=== PATIENT | female | born 1995 | race African-American/Black ===

== ENCOUNTER 2017-05-13 23:08 | Emergency (ER) | payer OTHER ==
[~2017-05-13] VITALS: Ht 170.2 cm; Wt 77.1 kg
[2017-05-13 23:20] VITALS: BP 109/72
[2017-05-13] MEDS ORDERED: IBUP600T16 PO (23:42)
[2017-05-13] MEDS ORDERED: AZIT250T PO (23:42)
--- NOTE | 2017-05-13 23:42 | PHYS DOC ---
Past History Past Medical History: No Pertinent History Past Surgical History: No Surgical History Alcohol Use: None Drug Use: None Adult General Chief Complaint Chief Complaint: Neck Pain HPI HPI Patient is a 21-year-old female who presents here today complaining of neck pain for 3 days and sore throat 1-2 days. Patient has any fevers shakes chills nausea vomiting diarrhea chest pain shortness of breath cough cold or rhinorrhea. Patient denies any swelling or tenderness in her axilla or groin. Patient denies any abdominal pain. Patient does not recall any mono exposure. Patient has no history of hypertension diabetes liver lung or kidney pals. Patient does not smoke or drink. Patient is allergic to any medications. Patient has no known drug allergies. Patient has no prior surgeries. Patient reports pain to the posterior rectal region 3 days. Patient reports a fairly swelling 1-2 days. Review of systems: Constitutional: Denies fever or chills Eyes: Denies change in visual acuity, redness, or eye pain HENT: Denies nasal congestion All other review systems are negative except as documented in the history of present illness portion. Physical exam: Constitutional: Well developed, well nourished, no acute distress, non-toxic appearance. HENT: Normocephalic, atraumatic, bilateral external ears normal, TMs clear. Patient was tender lymphadenopathy to her submental region as well as her posterior rectal region. Patient has no axillary or groin lymphadenopathy. Spleen is not palpable. Without any erythema. Patient's oropharynx reveals mild bilateral erythema with no exudate. Eyes: PERRLA, EOMI, conjunctiva normal, no discharge. Neck: Normal range of motion, no tenderness, supple, no stridor. No meningeal signs. Cardiovascular:Heart rate regular rhythm, Lungs & Thorax: Bilateral breath sounds clear to auscultation Abdomen: Bowel sounds normal, soft, Skin: Warm, dry, no erythema, no rash. Back: No tenderness, no CVA tenderness. Extremities: No tenderness, no cyanosis, no clubbing, ROM intact, no edema. Neurologic: Alert and oriented X 3, Psychologic: Affect normal, Assessment and plan 21-year-old with bilateral neck pain and posterior regular pain. Patient's exam is essentially unremarkable except for some mild pharyngeal erythema and tender lymphadenopathy. Patient will be given a prescription for Zithromax and ibuprofen assist her with her pain and possible strep throat. Patient does not present with signs or symptoms consistent with meningitis or mono. Review of Systems Review of Systems = Current Medications Current Medications Current Medications Medications (Trade) Dose Ordered Sig/Krystin Start Time Stop Time Status Last Admin Dose Admin Azithromycin (Zithromax) 500 mg 1X ONCE 05/13/17 23:30 05/13/17 23:31 UNV Ibuprofen (Motrin) 600 mg 1X ONCE 05/13/17 23:30 05/13/17 23:31 UNV Allergies Allergies Allergies Coded Allergies Type Severity Reaction Last Updated Verified No Known Drug Allergies 09/27/16 No EKG EKG [] Radiology/Procedures Radiology/Procedures [] Course & Med Decision Making Course & Med Decision Making Pertinent Labs and Imaging studies reviewed. (See chart for details) [] Dragon Disclaimer Dragon Disclaimer This chart was dictated in whole or in part using Voice Recognition software in a busy, high-work load, and often noisy Emergency Department environment. It may contain unintended and wholly unrecognized errors or omissions. Departure Departure: Impression: Primary Impression: Pharyngitis Additional Impression: Lymphadenopathy Disposition: 01 HOME, SELF-CARE Condition: IMPROVED Referrals: AZIZA CALHOUN MD (PCP) Patient Instructions: Sore Throat Scripts Azithromycin (ZITHROMAX) 250 Mg Tablet 250 MG PO DAILY for ANTI-BIOTIC for 4 Days, #4 TAB 0 Refills Prov: DORA TERRY MD 05/13/17 Ibuprofen (IBUPROFEN) 600 Mg Tablet 600 MG PO QID Y for PAIN, #20 Prov: DORA TERRY MD 05/13/17 Problem Qualifiers DORA TERRY MD May 13, 2017 23:42
[2017-05-14] MEDS ORDERED: IBUPROFEN 600 MG TABLET. PO ONE
[2017-05-14] MEDS ORDERED: AZITHROMYCIN 250 MG TABLET. PO ONE
== END 2017-05-13 23:52 | disposition home or self-care (01) ==
LOC: ER 23:08
DX: R59.1 Generalized enlarged lymph nodes (principal)
CPT/HCPCS: 99283; J0456

== ENCOUNTER 2017-09-08 11:26 | Emergency (ER) | payer OTHER ==
[~2017-09-08 11:26] MED LIST: AZIT250T PO; IBUP600T16 PO
[2017-09-08 11:35] VITALS: BP 131/66
[2017-09-08 12:33] LABS: INFLUENZA A PATIENT NEGATIVE (NEGATIVE); INFLUENZA B PATIENT NEGATIVE (NEGATIVE)
[2017-09-08 12:52] LABS: BACTERIA,URINE MOD /HPF (0-FEW); BILIRUBIN,URINE NEG (NEG); CLARITY,URINE TURBID; COLOR,URINE YELLOW; GLUCOSE,URINE NEG (NEG); HYALINE CASTS, URINE OCC /HPF; NITRITE,URINE NEG (NEG); RBC,URINE OCC /HPF (0-2); SQUAMOUS EPITHELIAL CELL,UR MOD /LPF; UROBILINOGEN,URINE 1 mg/dL (0.2 mg/dL); WBC,URINE >40 /HPF (0-4)
[2017-09-08] MEDS ORDERED: PHEN100T82 PO (13:01)
[2017-09-08] MEDS ORDERED: SULF1TAB24 PO (13:01)
--- NOTE | 2017-09-08 13:02 | PHYS DOC ---
General Chief Complaint: SORE THROAT Stated Complaint: SORE THROAT,COUGH,CONGESTION/PAIN ON URINATION Time Seen by MD: 11:42 Source: patient Exam Limitations: no limitations Problems: History of Present Illness Initial Comments Patient is a 21-year-old female who comes to the ED complaining of dysuria and lower abdominal discomfort. Patient also states she's had a mild scratchy throat with clear nasal discharge and a dry cough. She denies any flank pain nausea vomiting or diarrhea no fever chills sweats or myalgias. She denies any symptoms of bowel movements and feels like she may have a urinary tract infection. No pre-arrival treatment she states she's normally healthy immunizations are up-to-date. I urine collected upon arrival as well as swabs for influenza and strep. Timing/Duration: other Severity: moderate Modifying Factors: improves with other Associated Symptoms: other Allergies: Coded Allergies: No Known Drug Allergies (Unverified , 09/27/16) Past Medical History Medical History: no pertinent history Surgical History: noncontributory Social History Smoker: non-smoker Alcohol: none Drugs: none Review of Systems Constitutional: see HPI Respiratory: see HPI Cardiovascular: denies chest pain, denies palpitations Gastrointestinal: see HPI Genitourinary: see HPI Musculoskeletal: denies back pain, denies joint swelling, denies neck pain Psychiatric/Neurological: denies emotional problems, denies headache, denies numbness Physical Exam General Appearance: WD/WN, no apparent distress Ear, Nose, Throat: hearing grossly normal, normal ENT inspection, normal pharynx Neck: non-tender, supple Respiratory: normal breath sounds, no respiratory distress Cardiovascular: normal peripheral pulses, regular rate, rhythm Gastrointestinal: soft (mild suprapubic tenderness without rebound guarding or mass negative Morgan negative McBurney bowel sounds are normal) Back: no CVA tenderness, no vertebral tenderness Extremities: non-tender, normal inspection Neurologic/Psychiatric: no motor/sensory deficits Orders, Labs, Meds Urinalysis grossly positive for infection culture pending Strep and influenza test negative Bactrim DS and Pyridium given in the emergency department. I discussed signs and symptoms to monitor for as well as indications for urgent return to the department. I discussed [id number] prescription medications as well as oral hydration. Patient's questions were answered and she expressed agreement and understanding of treatment plan. Departure Time of Disposition: 13:01 Disposition: 01 HOME, SELF-CARE Diagnosis: UTI Condition: GOOD Patient Instructions: Urinary Tract Infection, [id number]-gf-Gpcy Additional Instructions: Please review the patient education materials given by ED staff. Aggressive hydration with Gatorade or water. [id number]-[id number] Tylenol, ibuprofen, and analgesic throat sprays as needed. Follow-up with your doctor in 10-14 days for recheck of symptoms and urine culture results. Return to ED with new or changing symptoms. ERIC GALLAGHER DO Sep 08, 2017 13:02
[2017-09-09] MEDS ORDERED: viscus Lidocaine TOP (16:43)
== END 2017-09-08 13:10 | disposition home or self-care (01) ==
LOC: ER 11:26
DX: N39.0 Urinary tract infection, site not specified (principal); R09.89 Other specified symptoms and signs involving the circulatory and respiratory systems
CPT/HCPCS: 81001; 87070; 87086; 87186; 87804; 87880; 99284

== ENCOUNTER 2017-09-09 16:02 | Emergency (ER) | payer OTHER ==
[~2017-09-09] VITALS: Ht 170.2 cm; Wt 86.2 kg
[~2017-09-09 16:02] MED LIST changes: +PHEN100T82 PO; +SULF1TAB24 PO
[2017-09-09 16:10] VITALS: BP 112/63
[2017-09-09] MEDS ORDERED: viscus Lidocaine TOP (16:43)
--- NOTE | 2017-09-09 16:43 | PHYS DOC ---
Past History Past Medical History: No Pertinent History Past Surgical History: No Surgical History Alcohol Use: None Drug Use: None Adult General Chief Complaint Chief Complaint: DENTAL PROBLEM HPI HPI 21-year-old female patient was seen in this emergency room yesterday for sore throat and UTI with negative strep and treated with antibiotic and Pyridium. Patient complaining of sore inside of her cheek and lip since yesterday that not getting with [id number] pain medication. Patient denies fever, dental pain, history of the same problem. Review of Systems Review of Systems Constitutional: Denies fever or chills [] Eyes: Denies change in visual acuity, redness, or eye pain [] HENT: reports nasal congestion, sore throat, oral pain [] Respiratory: Denies cough or shortness of breath [] Cardiovascular: No additional information not addressed in HPI [] GI: Denies abdominal pain, nausea, vomiting, bloody stools or diarrhea [] : Denies dysuria or hematuria [] Musculoskeletal: Denies back pain or joint pain [] Integument: Denies rash or skin lesions [] Neurologic: Denies headache, focal weakness or sensory changes [] Endocrine: Denies polyuria or polydipsia [] All other systems were reviewed and found to be within normal limits, except as documented in this note. Allergies Allergies Allergies Coded Allergies Type Severity Reaction Last Updated Verified No Known Drug Allergies 09/27/16 No Physical Exam Physical Exam Constitutional: Well nourished, no acute distress, non-toxic appearance. [] HENT: Normocephalic, atraumatic, bilateral external ears normal, oropharynx moist, no oral exudates, nose normal. Small area of ulcer in oral mucosal of lower lip and left side of cheek. [] Eyes: PERRLA, EOMI, conjunctiva normal, no discharge. [] Neck: Normal range of motion, no tenderness, supple, no stridor. [] Cardiovascular:Heart rate regular rhythm, no murmur [] Lungs & Thorax: Bilateral breath sounds clear to auscultation [ Neurologic: Alert and oriented X 3, normal motor function, normal sensory function, no focal deficits noted. [] Current Patient Data Vital Signs Vital Signs Date Time Temp Pulse Resp B/P (MAP) Pulse Ox O2 Delivery O2 Flow Rate FiO2 09/09/17 16:10 97.7 92 16 100 Room Air EKG EKG [] Radiology/Procedures Radiology/Procedures [] Course & Med Decision Making Course & Med Decision Making Evaluation of patient in ER showed 21-year-old female patient presented to emergency room for the second time in the last 2 days with complaining of sore throat and sore in her mouth. Patient had canker sores and instructed to continue home antibiotic and prescription for viscous lidocaine was given. Dragon Disclaimer Dragon Disclaimer This electronic medical record was generated, in whole or in part, using a voice recognition dictation system. Departure Departure: Impression: Primary Impression: Canker sores oral Disposition: HOME, SELF-CARE (At 1640) Condition: STABLE Referrals: AZIZA CALHOUN MD (PCP) Patient Instructions: Canker Sores Additional Instructions: Continue her current home medication Follow-up with your primary care physician in 3-5 days Return to ER if not getting better Scripts [viscus Lidocaine] No Conflict Check 1 RASHID TOP QID Y for PAIN for 5 Days, #120 ML Prov: RORY JACOBS MD 09/09/17 RORY JACOBS MD Sep 09, 2017 16:43
== END 2017-09-09 17:02 | disposition home or self-care (01) ==
LOC: ER 16:02
DX: K12.0 Recurrent oral aphthae (principal)
CPT/HCPCS: 99283

== ENCOUNTER 2017-09-12 21:28 | Emergency (ER) | payer OTHER ==
[~2017-09-12] VITALS: Ht 170.2 cm; Wt 86.2 kg
[~2017-09-12 21:28] MED LIST changes: +viscus Lidocaine TOP
[2017-09-12 22:15] VITALS: BP 135/79
--- NOTE | 2017-09-12 22:34 | PHYS DOC ---
General Chief Complaint: URINARY FREQUENCY Stated Complaint: PROBLEM URINATING Time Seen by MD: 21:35 Source: patient Exam Limitations: no limitations Problems: History of Present Illness Initial Comments Patient is a 21-year-old female complaining of urinary symptoms. Patient was seen in this emergency department 4 days ago by me diagnosed with urinary tract infection and prescribed Bactrim DS and Pyridium. I have attached copy of the urine culture report below she grew out Proteus mirabilis susceptible to Bactrim DS. RUN DATE: 09/10/17 [facility] *LIVE* PAGE 1 RUN TIME: 1314 Specimen Inquiry PATIENT: CLIFF VERA ACCT: [id number] LOC: ALE U : [id number] AGE/SX: 21/F ROOM: REG : 09/08/[address]: ERIC GALLAGHER DO : 1995 BED: DIS : STATUS: KELLY AGUILERA TLOC: SPEC #: [id number] ELKIN: 09/08/17-1253 STATUS: DAYNE RIOJAS #: [id number] RECD: 09/08/[address]: ERIC GALLAGHER DO SOURCE: VOID ENTR: 09/08/[address] [facility] [address]: AZIZA CALHOUN MD [facility]: ORDERED: URINE CULTURE Procedure Result URINE CULTURE Final Final report URINE CULT RES 1 Final Proteus mirabilis Greater than 100,000 colony forming units per mL Cefazolin <=4 ug/mL Cefazolin with an LUNA <=16 predicts susceptibility to the oral agents cefaclor, cefdinir, cefpodoxime, cefprozil, cefuroxime, cephalexin, and loracarbef when used for therapy of uncomplicated urinary tract infections due to E. coli, Klebsiella pneumoniae, and Proteus mirabilis. ANTIMICROBIAL SUSCEPTIBILITY Final Comment S = Susceptible; I = Intermediate; R = Resistant P = Positive; N = Negative MICS are expressed in micrograms per mL Antibiotic RSLT#1 RSLT#2 RSLT#3 RSLT#4 Amoxicillin/Clavulanic Acid S Ampicillin S Cefepime S Ceftriaxone S Cefuroxime S Cephalothin S Ciprofloxacin S Ertapenem S Gentamicin S Levofloxacin S Nitrofurantoin R Piperacillin S Tetracycline R Tobramycin S Trimethoprim/Sulfa S Performed at: [address] [id number] Copyright Manager: Michelle Zarate MD, Phone: [phone] END OF REPORT Patient states that she developed a yeast infection and was seen at [facility] and prescribed Diflucan. She states she also used some over-the- counter Monistat. She says that yesterday she felt some burning itching and tingling around her external genitalia however had no skin changes. She then developed some clear vesicles was have not popped and she has exquisitely tender ulcerations she states her preventing her from urinate or walk properly. She asked as if she is in severe distress she claims one lifetime sexual partner unprotected and states that he is waiting in the waiting room. She is requesting a pelvic exam to evaluate her skin lesions. She denies history of STI she states that yesterday when she was feeling the itching and burning she also felt as if she had some chills and sweats and body ache those symptoms have resolved. She continues to take the Bactrim DS as prescribed. Timing/Duration: other Modifying Factors: worse with movement, improves with rest Associated Symptoms: other Allergies: Coded Allergies: No Known Drug Allergies (Unverified , 09/27/16) Past Medical History Medical History: no pertinent history Surgical History: noncontributory Social History Smoker: non-smoker Alcohol: none Drugs: none Review of Systems Constitutional: see HPI Respiratory: denies cough, denies shortness of breath Cardiovascular: denies chest pain, denies palpitations Gastrointestinal: denies abdominal pain, denies nausea, denies vomiting Genitourinary: see HPI Musculoskeletal: denies back pain, denies joint swelling, denies neck pain Skin: see HPI Psychiatric/Neurological: denies headache, denies numbness, denies paresthesia Physical Exam General Appearance: WD/WN, no apparent distress Neck: non-tender, supple Respiratory: normal breath sounds, no respiratory distress Gastrointestinal: non tender, soft Rectal: other (genitourinary: Exam completed with RN present. Excessive topical Desitin medication wiped away by RN patient accepted it is exquisitely painful. Once the topical medication has been removed exam is very difficult as the patient still complains of exquisite tenderness. 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 Physical exam findings in combination with the development of symptoms before actual skin lesions compatible treatment.) Back: no CVA tenderness, no vertebral tenderness Extremities: non-tender, normal inspection Neurologic/Psychiatric: target setter II-XII nml as tested, no motor/sensory deficits, alert, normal mood/affect, oriented x 3 Orders, Labs, Meds I discussed the possibility that HSV too could be the cause of her new symptoms. I discussed the departure instructions [id number] and provided them in written format. I discussed the need to follow-up with a auto air conditioning installer for confirmation of today's diagnosis or the possibility that an alternative process could be present. Nupercainal applied with good analgesic relief and Valtrex 1000 mg given by mouth. I discussed no sexual contact until cleared by auto air conditioning installer, signs and symptoms to monitor as well as indications for urgent return to the department. I discussed Diflucan for yeast infection and the patient's questions were answered to her satisfaction. She understands that she must follow-up with a auto air conditioning installer and expressed agreement and understanding with the treatment plan. Departure Time of Disposition: 00:29 Disposition: 01 HOME, SELF-CARE Diagnosis: Genital lesions (HSV2), candidiasis, UTI Condition: GOOD Patient Instructions: Candidal Vulvovaginitis, [id number], Genital Herpes Additional Instructions: Please review the patient education materials given by ED staff. Pelvic rest, no genital sexual activity until cleared by your doctor. Continue Bactrim DS. Prescription: Nupercainal, Valtrex, Diflucan Follow-up with your doctor in 10 days for recheck and further evaluation and treatment as necessary. Return to the ED with new or changing symptoms. ERIC GALLAGHER DO Sep 12, 2017 22:34
[2017-09-12] MEDS: DIBUCAINE RECTAL OINTMENT 28GM TUBE. RC ONE (23:40)
[2017-09-13] MEDS ORDERED: [UNRECOGNIZED DRUG - CODE] TP (00:28)
[2017-09-13] MEDS ORDERED: VALA10005 PO (00:28)
[2017-09-13] MEDS ORDERED: FLUC150T PO (00:28)
[2017-09-13] MEDS: valACYclovir 500 MG TABLET. PO ONE (00:42)
== END 2017-09-13 00:45 | disposition home or self-care (01) ==
LOC: ER 21:28
DX: N39.0 Urinary tract infection, site not specified (principal); B37.9 Candidiasis, unspecified; N94.89 Other specified conditions associated with female genital organs and menstrual cycle
CPT/HCPCS: 99283

== ENCOUNTER 2017-09-13 03:12 | Emergency (ER) | payer OTHER ==
[~2017-09-13] VITALS: Ht 170.2 cm; Wt 86.2 kg
[~2017-09-13 03:12] MED LIST changes: +FLUC150T PO; +VALA10005 PO; +[UNRECOGNIZED DRUG - CODE] TP
[2017-09-13 03:40] VITALS: BP 98/61
--- NOTE | 2017-09-13 03:43 | PHYS DOC ---
General Chief Complaint: DRUG ABUSE Stated Complaint: DIZZINESS Time Seen by MD: 03:39 Source: patient, EMS Exam Limitations: intoxication Problems: History of Present Illness Initial Comments Patient is a 21-year-old female well known to the department as she's been seen here several times in the past few days. Patient was discharged home just a few hours ago with apparent new onset general herpes infection. Patient brought to the ED by EMS after reporting that she had used marijuana for the first time tonight and now was feeling like the room was spinning. Her vital signs are stable and she was brought to the ED for medical screening exam. In the emergency department the patient falls asleep each time she is left alone in the exam room. When she is awake and she is somewhat paranoid and wants to know how long she will be high, denies any other illicit substance abuse. She states that she took 8 hit from a marijuana joint and has never used this substance in the past. She says that having the room spinning and being disoriented scared her. On arrival she was somewhat paranoid however throughout the ED course she has become very sleepy the entire time she's been on telemetry protecting her airway with normal vital signs. Her aunt is in the waiting room with a small child and is wanting to take her home, she is willing to keep an eye on her throughout the night to make sure she doesn't get into any further trouble. She agrees to bring her back to the emergency department with any new or changing symptoms and after medical screening exam in the emergency department I do not feel any further workup is necessary and the patient is stable for discharge home with a responsible adult. Timing/Duration: other Severity: severe Modifying Factors: improves with other Associated Symptoms: other Allergies: Coded Allergies: No Known Drug Allergies (Unverified , 09/27/16) Past Medical History Medical History: no pertinent history Surgical History: noncontributory Social History Smoker: non-smoker Alcohol: none Drugs: marijuana Review of Systems All Other Systems: Reviewed and Negative (patient is intoxicated accurate review of systems is unobtainable see history of present illness) Physical Exam General Appearance: WD/WN, mild distress (paranoid when awake however also sleep easily) Eyes: bilateral eye PERRL, bilateral eye EOMI, bilateral eye other ( conjunctivae injected bilaterally) Ear, Nose, Throat: hearing grossly normal, normal ENT inspection, normal pharynx Neck: non-tender, supple Respiratory: normal breath sounds, no respiratory distress Cardiovascular: normal peripheral pulses, regular rate, rhythm Back: no CVA tenderness, no vertebral tenderness Extremities: non-tender, normal inspection Neurologic/Psychiatric: supervisor plastering II-XII nml as tested, no motor/sensory deficits, alert, normal mood/affect, oriented x 3 Skin: normal color, warm/dry Orders, Labs, Meds Patient was discharged home with her aunt who agrees to take care of her tonight. She will basically take patient home put her to bed and make sure she doesn't get up or to cause any trouble. Departure Time of Disposition: 03:40 Disposition: 01 HOME, SELF-CARE Diagnosis: marijuana intoxication, substance abuse, screening Condition: STABLE Patient Instructions: Marijuana Abuse-Brief, Medical Screening Exam Additional Instructions: After ED evaluation findings and given Jayne history of first time marijuana abuse medical screening exam tonight reveals no emergent condition. No driving or operating machinery while under the influence of illicit or prescription medications. Recommend discontinue substance abuse, seeking medical assistance if necessary. Discharge home with responsible adult relative who can keep an eye on Jayne throughout the night. Return to the ED and follow-up with your doctor as needed. ERIC GALLAGHER DO Sep 13, 2017 03:43
== END 2017-09-13 03:45 | disposition home or self-care (01) ==
LOC: ER 03:12
DX: F12.129 Cannabis abuse with intoxication, unspecified (principal)
CPT/HCPCS: 99283

== ENCOUNTER 2017-11-20 02:36 | Emergency (ER) | payer OTHER ==
[~2017-11-20] VITALS: Ht 170.2 cm; Wt 86.2 kg
[2017-11-20 02:42] VITALS: BP 121/73
--- NOTE | 2017-11-20 02:57 | ED.ADGEN ---
Past History Past Medical History: No Pertinent History, Other Past Surgical History: No Surgical History Alcohol Use: None Drug Use: Marijuana Adult General Chief Complaint Chief Complaint " I first had this back in Aug. .. after I smoked some marijuana.. but I keep having these episodes of numbness in my hands.. and now it is my feet... It can go all the way up my arms.. it got really bad tonight.. I tried to sleep it off... but could nt.... " HPI HPI Patient is a 22 year old female who presents with periodic episodes of hand numbness. Symptoms started after smoking some Marijuana on 09/13/2017. Pt. numbness is described as glove distribution. Pt. now complaints of stocking numbness distribution with the glove distribution. Nothing seems to make numbness better. No hx trauma, travel or specific ill contacts. Pt. has had problems with UTI complaints 09/08, 09/09, and 09/12 of this year- seen in ED. Pt. seen on 09/13 for numbness in hands. Symptoms usually happen when she is at home. Symptoms present up on awaking tonight. Pt. has not followed with Dr. Ana Rosa Wahl at [facility]. Significant other states she does snore at night, to point he can not sleep. He does not live with her in her apt. Review of Systems Review of Systems Constitutional: Denies fever or chills [] Eyes: Denies change in visual acuity, redness, or eye pain [] HENT: Denies nasal congestion or sore throat [] Respiratory: Denies cough or shortness of breath [] Cardiovascular: No additional information not addressed in HPI [] GI: Denies abdominal pain, nausea, vomiting, bloody stools or diarrhea [] : Denies dysuria or hematuria [] Musculoskeletal: Denies back pain or joint pain . Complaints of generalized weakness. Integument: Denies rash or skin lesions [] Neurologic: Denies headache, focal weakness .]Complaints of glove and stocking numbness. Endocrine: Denies polyuria or polydipsia [] All other systems were reviewed and found to be within normal limits, except as documented in this note. Family History Family History Non-contributory Current Medications Current Medications Current Medications Medications (Trade) Dose Ordered Sig/Krystin Start Time Stop Time Status Last Admin Dose Admin Lactated Ringer's 1,000 ml @ 1,000 mls/hr Q1H 11/20/17 03:30 11/20/17 04:30 DC 11/20/17 03:55 1,000 MLS/HR Allergies Allergies Allergies Coded Allergies Type Severity Reaction Last Updated Verified No Known Drug Allergies 09/27/16 No Physical Exam Physical Exam Constitutional: Well developed, well nourished, no acute distress, non-toxic appearance. [] HENT: Normocephalic, atraumatic, bilateral external ears normal, oropharynx moist, no oral exudates, nose normal. [] Eyes: PERRLA, EOMI, conjunctiva normal, no discharge. [] Fundus benign. Neck: Normal range of motion, no tenderness, supple, no stridor. [] No carotid bruits appreciated. Palpable thyroid Cardiovascular:Heart rate regular rhythm, no murmur [] Lungs & Thorax: Bilateral breath sounds equal at apexes with a few scattered wheezes auscultation [] Abdomen: Bowel sounds normal, soft, no tenderness, no masses, no pulsatile masses. Obese Skin: Warm, dry, no erythema, no rash. [] Back: No tenderness, no CVA tenderness. [] Extremities: No tenderness, no cyanosis, no clubbing, ROM intact, no edema. [] Neurologic: Alert and oriented X 3, normal motor function, normal sensory function, no focal deficits noted. []DTRs +2 patella and brachial. No drift. Podiatrist Orthopedic equal. Fingers nose good with eyes closed. Mild Romberg. Distal vibratory 128 intact in hands and feet. Air-conduction more than bone conduction with 128 vib. Rt. hand dominate. Psychologic: Affect anxious, judgement normal, mood normal. [] Current Patient Data Vital Signs Vital Signs Date Time Temp Pulse Resp B/P (MAP) Pulse Ox O2 Delivery O2 Flow Rate FiO2 11/20/17 02:42 97.3 89 18 99 Lab Results Laboratory Tests Test 11/20/17 02:07 11/20/17 03:00 11/20/17 03:20 11/20/17 03:21 POC Urine HCG, Qualitative hcg negative (Negative) Urine Collection Type Unknown Urine Color Yellow Urine Clarity Clear Urine pH 6.5 Urine Specific [place] 1.020 Urine Protein Neg (NEG-TRACE) Urine Glucose (UA) Neg mg/dL (NEG) Urine Ketones (Stick) Trace mg/dL (NEG) Urine Blood Small (NEG) Urine Nitrite Neg (NEG) Urine Bilirubin Neg (NEG) Urine Urobilinogen Dipstick 1 mg/dL (0.2 mg/dL) Urine Leukocyte Esterase Neg (NEG) Urine RBC Occ /HPF (0-2) Urine WBC 1-4 /HPF (0-4) Urine Squamous Epithelial Cells Mod /LPF Urine Bacteria Few /HPF (0-FEW) Urine Opiates Screen Neg (NEG) Urine Methadone Screen Neg (NEG) Urine Barbiturates Neg (NEG) Urine Phencyclidine Screen Neg (NEG) Urine Amphetamine/Methamphetamine Neg (NEG) Urine Benzodiazepines Screen Neg (NEG) Urine Cocaine Screen Neg (NEG) Urine Cannabinoids Screen Neg (NEG) Urine Ethyl Alcohol Neg (NEG) White Blood Count 8.6 x10^3/uL (4.0-11.0) Red Blood Count 4.58 x10^6/uL (3.50-5.40) Hemoglobin 11.5 g/dL (12.0-15.5) L Hematocrit 35.8 % (36.0-47.0) L Mean Corpuscular Volume 78 fL (79-100) L Mean Corpuscular Hemoglobin 25 pg (25-35) Mean Corpuscular Hemoglobin Concent 32 g/dL (31-37) Red Cell Distribution Width 18.5 % (11.5-14.5) H Platelet Count 321 x10^3/uL (140-400) Neutrophils (%) (Auto) 45 % (31-73) Lymphocytes (%) (Auto) 45 % (24-48) Monocytes (%) (Auto) 7 % (0-9) Eosinophils (%) (Auto) 2 % (0-3) Basophils (%) (Auto) 1 % (0-3) Neutrophils # (Auto) 3.9 x10^3uL (1.8-7.7) Lymphocytes # (Auto) 3.9 x10^3/uL (1.0-4.8) Monocytes # (Auto) 0.6 x10^3/uL (0.0-1.1) Eosinophils # (Auto) 0.1 x10^3/uL (0.0-0.7) Basophils # (Auto) 0.1 x10^3/uL (0.0-0.2) Erythrocyte Sedimentation Rate 12 (0-25) Sodium Level 140 mmol/L (136-145) Potassium Level 4.0 mmol/L (3.5-5.1) Chloride Level 105 mmol/L (98-107) Carbon Dioxide Level 25 mmol/L (21-32) Anion Gap 10 (6-14) Blood Urea Nitrogen 15 mg/dL (7-20) Creatinine 0.8 mg/dL (0.6-1.0) Estimated GFR (Cockcroft-Gault) 110.7 Glucose Level 93 mg/dL (70-99) Calcium Level 8.7 mg/dL (8.5-10.1) Magnesium Level 1.8 mg/dL (1.8-2.4) Total Bilirubin 0.2 mg/dL (0.2-1.0) Direct Bilirubin < 0.1 mg/dL (0.0-0.2) Aspartate Amino Transferase (AST) 17 U/L (15-37) Alanine Aminotransferase (ALT) 23 U/L (14-59) Alkaline Phosphatase 113 U/L (46-116) Creatine Kinase 160 U/L (26-192) Creatine Kinase MB (Mass) < 0.5 ng/mL (0.0-3.6) Creatine Kinase MB Relative Index 0.3 % (0-4) Troponin I Quantitative < 0.017 ng/mL (0-0.055) Total Protein 7.1 g/dL (6.4-8.2) Albumin 3.4 g/dL (3.4-5.0) Blood pH 7.38 (7.35-7.45) Blood Gas PCO2 36 mmHg (35-45) Blood Gas PO2 93 mmHg (80-100) Blood Gas HCO3 22 mmol/L (22-26) Arterial Bld O2 Saturation (Calc) 97 % (92-99) FiO2 21 % Test 11/20/17 03:40 Carbon Monoxide, Quantitative 1.2 EKG EKG [] Radiology/Procedures Radiology/Procedures CT shows no shift, mass, edema, fx or shift, hemorrhage. Cervical shows no obvious fx., stenosis foraminal or central. See formal report when available. [] Course & Med Decision Making Course & Med Decision Making Pertinent Labs and Imaging studies reviewed. (See chart for details) [] Final Impression Final Impression 1. Glove and Stocking Numbness Complaints- Interment[] 2. Anemia Problems: Dragon Disclaimer Dragon Disclaimer This electronic medical record was generated, in whole or in part, using a voice recognition dictation system. DAVID PANTOJA MD Nov 20, 2017 02:57
[2017-11-20] MEDS ORDERED: IV RINGERS SOLUTION,LACTATED 1,000 ML IV SCH (03:30)
[2017-11-20 03:38] LABS: BASO # 0.1 x10^3/uL (0.0-0.2); BASO % 1 % (0-3); EOS # 0.1 x10^3/uL (0.0-0.7); EOS % 2 % (0-3); HEMATOCRIT 35.8 % (36.0-47.0); HEMOGLOBIN 11.5 g/dL (12.0-15.5); LYMPH # 3.9 x10^3/uL (1.0-4.8); LYMPH % 45 % (24-48); MEAN CORPUSCULAR HEMOGLOBIN 25 pg (25-35); MEAN CORPUSCULAR HGB CONC 32 g/dL (31-37); MEAN CORPUSCULAR VOLUME 78 fL (79-100); MONO # 0.6 x10^3/uL (0.0-1.1); MONO % 7 % (0-9); NEUT # 3.9 x10^3uL (1.8-7.7); NEUT % 45 % (31-73); PLATELET COUNT 321 x10^3/uL (140-400); RED BLOOD COUNT 4.58 x10^6/uL (3.50-5.40); RED CELL DISTRIBUTION WIDTH 18.5 % (11.5-14.5); WHITE BLOOD COUNT 8.6 x10^3/uL (4.0-11.0)
[2017-11-20 03:44] LABS: BILIRUBIN,URINE NEG (NEG); CLARITY,URINE CLEAR; COLOR,URINE YELLOW; GLUCOSE,URINE NEG (NEG)
[2017-11-20 03:45] LABS: BACTERIA,URINE FEW /HPF (0-FEW); NITRITE,URINE NEG (NEG); RBC,URINE OCC /HPF (0-2); SQUAMOUS EPITHELIAL CELL,UR MOD /LPF; UROBILINOGEN,URINE 1 mg/dL (0.2 mg/dL)
[2017-11-20 03:46] LABS: AMPHETAMINE/METHAMPHETAMINE NEG (NEG); BARBITURATES NEG (NEG); BENZODIAZEPINES NEG (NEG); CANNABINOIDS NEG (NEG); COCAINE NEG (NEG); METHADONE NEG (NEG); OPIATES NEG (NEG); PHENCYCLIDINE NEG (NEG)
[2017-11-20 03:47] LABS: BGAS PH 7.38 (7.35-7.45)
--- NOTE | 2017-11-20 03:56 | RAD ---
CT brain without contrast, CT cervical spine without contrast HISTORY: Cervical neuropathy numbness and tingling bilateral upper extremities CT brain CT scan of brain was done without contrast. There is no intracranial hemorrhage or subdural hematoma. Ventricles are normal in size. There is no mass or shift of the midline. There are no abnormal areas of increased or decreased attenuation. Sinuses are clear. IMPRESSION: 1. No intracranial hemorrhage or acute finding noted. End impression CT cervical spine Axial CT images were obtained to the cervical spine. Sagittal and coronal reconstructed images were reviewed. There is no focal disc protrusion. Thyroid is homogeneous. The spine is in normal alignment. Disc spaces are normal in height. A fracture is not identified. IMPRESSION: 1. No fracture or acute osseous abnormality noted in the cervical spine. 2. No focal disc protrusion or spinal stenosis noted. PQRS Compliance Statement: One or more of the following individualized dose reduction techniques were utilized for this examination: 1. Automated exposure control 2. Adjustment of the mA and/or kV according to patient size 3. Use of iterative reconstruction technique Electronically signed by: Dustin Cordero MD (11/20/2017 3:53 AM) [id number]
[2017-11-20 04:06] LABS: ALBUMIN 3.4 g/dL (3.4-5.0); ALK PHOS 113 U/L (46-116); ALT (SGPT) 23 U/L (14-59); ANION GAP 10 (6-14); AST (SGOT) 17 U/L (15-37); BLOOD UREA NITROGEN 15 mg/dL (7-20); CALCIUM 8.7 mg/dL (8.5-10.1); CARBON DIOXIDE 25 mmol/L (21-32); CHLORIDE 105 mmol/L (98-107); CREATININE 0.8 mg/dL (0.6-1.0); GFR 110.7; GLUCOSE 93 mg/dL (70-99); MAGNESIUM 1.8 mg/dL (1.8-2.4); SODIUM 140 mmol/L (136-145); TOTAL BILIRUBIN 0.2 mg/dL (0.2-1.0); TOTAL PROTEIN 7.1 g/dL (6.4-8.2)
[2017-11-20 04:07] LABS: DIRECT BILIRUBIN < 0.1 mg/dL (0.0-0.2)
[2017-11-20 04:43] LABS: SEDIMENTATION RATE 12 (0-25)
== END 2017-11-20 05:00 | disposition home or self-care (01) ==
LOC: ER 02:36
DX: R20.0 Anesthesia of skin (principal); D64.9 Anemia, unspecified; F15.10 Other stimulant abuse, uncomplicated
CPT/HCPCS: 36415; 36600; 70450; 72125; 80048; 80076; 80307; 81001; 81025; 82375; 82553; 82803; 83735; 84443; 84484; 85025; 85045; 85651; 96360; 99285; J7120; G0479

== ENCOUNTER 2018-02-23 21:52 | Emergency (ER) | payer OTHER ==
[~2018-02-23] VITALS: Ht 170.2 cm; Wt 86.2 kg
[2018-02-23 21:55] VITALS: BP 128/73
--- NOTE | 2018-02-23 21:55 | ED.ADGEN ---
Past History Past Medical History: No Pertinent History, Other Past Surgical History: No Surgical History Alcohol Use: None Drug Use: Marijuana Adult General Chief Complaint Chief Complaint " I ve been sick off and on for two weeks... usually here in my stomach... some nausea and vomiting.. it seems to happen after eating greasy foods... I guess I could be .. 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 she is a lady that can't walk..." HPI HPI Patient is a 22 year old female who presents with above hx pain with nausea and vomiting. Nausea and vomiting seems be related to intake of fatty food. Last episode was after eating spaghetti with meat sauce.. Pt.denies travel, ill contacts, or work with ill patients. Pt. does not know if other people in her family have had gall bladder problems. Pt. denies any changes in stools Pt. normally healthy. Pt. normally follow s with in [facility]. Review of Systems Review of Systems Constitutional: Denies fever or chills [] Eyes: Denies change in visual acuity, redness, or eye pain [] HENT: Denies nasal congestion or sore throat [] Respiratory: Denies cough or shortness of breath [] Cardiovascular: No additional information not addressed in HPI [] GI: Complaints of epigastric and right upper quadrant abdominal pain, nausea, vomiting,. Denies bloody stools or diarrhea [] : Denies dysuria or hematuria [] Musculoskeletal: Denies back pain or joint pain [] Integument: Denies rash or skin lesions [] Neurologic: Denies headache, focal weakness or sensory changes [] Endocrine: Denies polyuria or polydipsia [] All other systems were reviewed and found to be within normal limits, except as documented in this note. Family History Family History Noncontributory Current Medications Current Medications Current Medications Medications (Trade) Dose Ordered Sig/Krystin Start Time Stop Time Status Last Admin Dose Admin Famotidine (Pepcid) 20 mg 1X ONCE 02/23/18 23:00 02/23/18 23:01 DC 02/23/18 22:58 20 MG Info (Do NOT chart on this entry -- for MONITORING) 1 each PRN DAILY PRN 02/23/18 23:45 02/24/18 01:50 DC Iohexol (Omnipaque 240 Mg/ml) 50 ml 1X ONCE 02/23/18 23:45 02/23/18 23:46 DC 02/24/18 00:31 50 ML Iohexol (Omnipaque 300 Mg/ml) 75 ml 1X ONCE 02/23/18 23:45 02/23/18 23:46 DC 02/24/18 00:30 75 ML Lactated Ringer's 1,000 ml @ 1,000 mls/hr Q1H 02/23/18 23:00 02/23/18 23:59 DC 02/23/18 22:54 1,000 MLS/HR Magnesium Hydroxide (Milk Of Magnesia) 2,400 mg 1X ONCE 02/23/18 23:00 02/23/18 23:01 DC 02/23/18 22:59 2,400 MG Ondansetron HCl (Zofran Odt) 8 mg 1X ONCE 02/23/18 23:00 02/23/18 23:01 DC 02/23/18 22:59 8 MG Allergies Allergies Allergies Coded Allergies Type Severity Reaction Last Updated Verified No Known Drug Allergies 02/23/18 No Physical Exam Physical Exam Constitutional: Well developed, well nourished, moderate acute distress, non- toxic appearance. [] HENT: Normocephalic, atraumatic, bilateral external ears normal, oropharynx moist, no oral exudates, nose normal. [] Eyes: PERRLA, EOMI, conjunctiva normal, no discharge. [] Neck: Normal range of motion, no tenderness, supple, no stridor. [] Cardiovascular:Heart rate regular rhythm, no murmur [] Lungs & Thorax: Bilateral breath sounds clear to auscultation [] Abdomen: Bowel sounds normal, soft, epigastric and right upper quadrant tenderness, no masses, no pulsatile masses. Rebound to epigastric and right upper quadrant. Declines rectal exam or pelvic exam this time. Distended. Skin: Warm, dry, no erythema, no rash. [] Back: No tenderness, no CVA tenderness. [] Extremities: No tenderness, no cyanosis, no clubbing, ROM intact, no edema. [No psoas or heeltap. Neurologic: Alert and oriented X 3, normal motor function, normal sensory function, no focal deficits noted. [] Psychologic: Affect anxious, judgement normal, mood normal. [] Current Patient Data Vital Signs Vital Signs Date Time Temp Pulse Resp B/P (MAP) Pulse Ox O2 Delivery O2 Flow Rate FiO2 02/23/18 21:55 97.9 16 99 Room Air Lab Results Laboratory Tests Test 02/23/18 21:18 02/23/18 21:58 02/23/18 22:49 POC Urine HCG, Qualitative hcg negative (Negative) Urine Collection Type Unknown Urine Color Yellow Urine Clarity Clear Urine pH 8.5 Urine Specific [place] 1.015 Urine Protein Neg (NEG-TRACE) Urine Glucose (UA) Neg mg/dL (NEG) Urine Ketones (Stick) Neg mg/dL (NEG) Urine Blood Neg (NEG) Urine Nitrite Neg (NEG) Urine Bilirubin Neg (NEG) Urine Urobilinogen Dipstick 0.2 mg/dL (0.2 mg/dL) Urine Leukocyte Esterase Neg (NEG) Urine RBC 0 /HPF (0-2) Urine WBC 1-4 /HPF (0-4) Urine Squamous Epithelial Cells Few /LPF Urine Bacteria Few /HPF (0-FEW) White Blood Count 11.1 x10^3/uL (4.0-11.0) H Red Blood Count 4.44 x10^6/uL (3.50-5.40) Hemoglobin 11.4 g/dL (12.0-15.5) L Hematocrit 35.5 % (36.0-47.0) L Mean Corpuscular Volume 80 fL (79-100) Mean Corpuscular Hemoglobin 26 pg (25-35) Mean Corpuscular Hemoglobin Concent 32 g/dL (31-37) Red Cell Distribution Width 16.2 % (11.5-14.5) H Platelet Count 374 x10^3/uL (140-400) Neutrophils (%) (Auto) 65 % (31-73) Lymphocytes (%) (Auto) 28 % (24-48) Monocytes (%) (Auto) 6 % (0-9) Eosinophils (%) (Auto) 1 % (0-3) Basophils (%) (Auto) 1 % (0-3) Neutrophils # (Auto) 7.2 x10^3uL (1.8-7.7) Lymphocytes # (Auto) 3.1 x10^3/uL (1.0-4.8) Monocytes # (Auto) 0.6 x10^3/uL (0.0-1.1) Eosinophils # (Auto) 0.1 x10^3/uL (0.0-0.7) Basophils # (Auto) 0.1 x10^3/uL (0.0-0.2) Sodium Level 137 mmol/L (136-145) Potassium Level 3.8 mmol/L (3.5-5.1) Chloride Level 106 mmol/L (98-107) Carbon Dioxide Level 28 mmol/L (21-32) Anion Gap 3 (6-14) L Blood Urea Nitrogen 7 mg/dL (7-20) Creatinine 0.9 mg/dL (0.6-1.0) Estimated GFR (Cockcroft-Gault) 96.6 Glucose Level 108 mg/dL (70-99) H Calcium Level 8.7 mg/dL (8.5-10.1) Total Bilirubin 0.2 mg/dL (0.2-1.0) Direct Bilirubin 0.1 mg/dL (0.0-0.2) Aspartate Amino Transferase (AST) 15 U/L (15-37) Alanine Aminotransferase (ALT) 14 U/L (14-59) Alkaline Phosphatase 101 U/L (46-116) Total Protein 6.6 g/dL (6.4-8.2) Albumin 2.9 g/dL (3.4-5.0) L EKG EKG [] Radiology/Procedures Radiology/Procedures My interpretation of acute abdomen film shows no free air under the diaphragm. No acute cardiopulmonary findings. Nonspecific bowel gas pattern. Does have increased stool throughout the colon. There is somewhat generous cardiac silhouette.[] CT shows no acute surgical findings. Appendix.. appeared Normal. Course & Med Decision Making Course & Med Decision Making Pertinent Labs and Imaging studies reviewed. (See chart for details) Clear fluid diet only x 48 hrs. Take Zantac 150 twice a day. Follow up with primary. Get radio-label gall bladder study. Avoid foot high in fat. Tylenol for pain. Take Zantac twice a day x 30 days. Return if any concerns. [] Final Impression Final Impression 1. Nausea and vomiting[] 2. Abd. Pain 3. Biliary Colic 4. Constipation Dragon Disclaimer Dragon Disclaimer This electronic medical record was generated, in whole or in part, using a voice recognition dictation system. DAVID PANTOJA MD Feb 23, 2018 21:55
[2018-02-23 22:28] LABS: CLARITY,URINE HAZY; COLOR,URINE STRAW; GLUCOSE,URINE NEG (NEG)
[2018-02-23 22:29] LABS: BACTERIA,URINE FEW /HPF (0-FEW); BILIRUBIN,URINE NEG (NEG); NITRITE,URINE NEG (NEG); RBC,URINE 0 /HPF (0-2); SQUAMOUS EPITHELIAL CELL,UR MOD /LPF; UROBILINOGEN,URINE 0.2 mg/dL (0.2 mg/dL)
[2018-02-23] MEDS ORDERED: ONDANSETRON ODT 4 MG TAB.RAPDIS PO ONE (23:00)
[2018-02-23] MEDS ORDERED: FAMOTIDINE 20 MG TABLET PO ONE (23:00)
[2018-02-23] MEDS ORDERED: IV RINGERS SOLUTION,LACTATED 1,000 ML IV SCH (23:00)
[2018-02-23] MEDS ORDERED: MAGNESIUM HYDROXIDE 2,400 MG/30 ML ORAL.SUSP. PO ONE (23:00)
[2018-02-23 23:09] LABS: BASO # 0.1 x10^3/uL (0.0-0.2); BASO % 1 % (0-3); EOS # 0.1 x10^3/uL (0.0-0.7); EOS % 1 % (0-3); HEMATOCRIT 35.5 % (36.0-47.0); HEMOGLOBIN 11.4 g/dL (12.0-15.5); LYMPH # 3.1 x10^3/uL (1.0-4.8); LYMPH % 28 % (24-48); MEAN CORPUSCULAR HEMOGLOBIN 26 pg (25-35); MEAN CORPUSCULAR HGB CONC 32 g/dL (31-37); MEAN CORPUSCULAR VOLUME 80 fL (79-100); MONO # 0.6 x10^3/uL (0.0-1.1); MONO % 6 % (0-9); NEUT # 7.2 x10^3uL (1.8-7.7); NEUT % 65 % (31-73); PLATELET COUNT 374 x10^3/uL (140-400); RED BLOOD COUNT 4.44 x10^6/uL (3.50-5.40); RED CELL DISTRIBUTION WIDTH 16.2 % (11.5-14.5); WHITE BLOOD COUNT 11.1 x10^3/uL (4.0-11.0)
[2018-02-23 23:22] LABS: ALBUMIN 2.9 g/dL (3.4-5.0); CALCIUM 8.7 mg/dL (8.5-10.1); CREATININE 0.9 mg/dL (0.6-1.0); DIRECT BILIRUBIN 0.1 mg/dL (0.0-0.2); GFR 96.6; POTASSIUM 3.8 mmol/L (3.5-5.1); TOTAL BILIRUBIN 0.2 mg/dL (0.2-1.0); TOTAL PROTEIN 6.6 g/dL (6.4-8.2)
[2018-02-23] MEDS ORDERED: CONTRAST GIVEN MC PRN (23:45)
[2018-02-23] MEDS ORDERED: IOHEXOL 300 MG/ML 75 ML VIAL. IV ONE (23:45)
[2018-02-23] MEDS ORDERED: IOHEXOL 240 MG/ML 50ML VIAL. PO ONE (23:45)
--- NOTE | 2018-02-24 00:12 | RAD ---
PA chest and AP upright supine abdomen x-rays HISTORY: Epigastric abdominal pain, nausea and vomiting. FINDINGS: Heart and mediastinum are unremarkable. There is an indistinct density of the basilar left lower lobe obscuring portions of the diaphragm could indicate lower lobe atelectasis/infiltrate. No pneumoperitoneum. There is a moderate volume of stool. No dilated bowel loops or abnormal air-fluid levels to suggest small bowel obstruction. Bones and soft tissues are unremarkable. IMPRESSION: 1. Basilar left lower lobe atelectasis/infiltrate. 2. Moderate volume of stool could represent mild constipation. Electronically signed by: Erick Calvo MD (02/24/2018 12:09 AM) [facility]
--- NOTE | 2018-02-24 01:03 | RAD ---
CT abdomen and pelvis with contrast HISTORY: Epigastric abdominal pain, nausea and vomiting. TECHNIQUE: Helical CT imaging of the abdomen and pelvis with oral contrast and 75 mL Omnipaque 300 intravenous contrast. Abdomen findings: Very mild inferior pericardial fluid. Lung bases and bones are unremarkable. Liver, gallbladder, spleen, kidneys, adrenal glands and pancreas are unremarkable. Moderate volume of stool. No bowel obstruction or inflammatory change. Appendix is negative. No abdominal fluid or enlarged adenopathy. Pelvis findings: Bladder, uterus, ovaries, rectum and bones are unremarkable. No pelvic fluid or adenopathy. IMPRESSION: Moderate volume of stool could represent constipation. Appendix is negative. Exposure: One or more of the following individualized dose reduction techniques were utilized for this examination: 1. Automated exposure control 2. Adjustment of the mA and/or kV according to patient size 3. Use of iterative reconstruction technique Electronically signed by: Erick Calvo MD (02/24/2018 12:59 AM) [facility]
[2018-02-24] MEDS ORDERED: ONDA8TAB12 PO (01:27)
[2018-02-24] MEDS ORDERED: RANI150T21 PO (01:27)
[2018-02-24 02:33] LABS: BACTERIA,URINE FEW /HPF (0-FEW); BILIRUBIN,URINE NEG (NEG); CLARITY,URINE CLEAR; COLOR,URINE YELLOW; GLUCOSE,URINE NEG (NEG); NITRITE,URINE NEG (NEG); RBC,URINE 0 /HPF (0-2); SQUAMOUS EPITHELIAL CELL,UR FEW /LPF; UROBILINOGEN,URINE 0.2 mg/dL (0.2 mg/dL)
== END 2018-02-24 01:43 | disposition home or self-care (01) ==
LOC: ER 21:52
DX: K80.50 Calculus of bile duct without cholangitis or cholecystitis without obstruction (principal); K59.00 Constipation, unspecified
CPT/HCPCS: 36415; 74022; 74177; 80048; 80076; 81001; 81025; 85025; 96360; 99285; J7120; Q0162; Q9966; Q9967

== ENCOUNTER 2018-04-29 07:45 | Emergency (ER) | payer OTHER ==
[~2018-04-29] VITALS: Ht 170.2 cm; Wt 86.2 kg
[~2018-04-29 07:45] MED LIST changes: +ONDA8TAB12 PO; +RANI150T21 PO
--- NOTE | 2018-04-29 08:50 | PHYS DOC ---
Past History Past Medical History: No Pertinent History, Other Past Surgical History: No Surgical History Alcohol Use: None Drug Use: Marijuana Adult General Chief Complaint Chief Complaint: VAGINAL PROBLEM HPI HPI 22-year-old female presents with what she describes as a yeast infection. She states she's had these in the past. She states there is no vaginal rash she has some whitish vaginal discharge claims is itchy. She denies any dysuria or gross hematuria. She denies any dyspareunia[] Review of Systems Review of Systems Constitutional: Denies fever or chills [] Eyes: Denies change in visual acuity, redness, or eye pain [] HENT: Denies nasal congestion or sore throat [] Respiratory: Denies cough or shortness of breath [] Cardiovascular: No additional information not addressed in HPI [] GI: Denies abdominal pain, nausea, vomiting, bloody stools or diarrhea [] : Denies dysuria or hematuria [] Musculoskeletal: Denies back pain or joint pain [] Integument: Denies rash or skin lesions [] Neurologic: Denies headache, focal weakness or sensory changes [] Endocrine: Denies polyuria or polydipsia [] All other systems were reviewed and found to be within normal limits, except as documented in this note. Current Medications Current Medications Current Medications Medications (Trade) Dose Ordered Sig/Krystin Start Time Stop Time Status Last Admin Dose Admin Fluconazole (Diflucan) 200 mg 1X ONCE 04/29/18 08:55 04/29/18 08:56 Allergies Allergies Allergies Coded Allergies Type Severity Reaction Last Updated Verified No Known Drug Allergies 02/23/18 No Physical Exam Physical Exam Constitutional: Well developed, well nourished, no acute distress, non-toxic appearance. [] HENT: Normocephalic, atraumatic, bilateral external ears normal, oropharynx moist, no oral exudates, nose normal. [] Eyes: PERRLA, EOMI, conjunctiva normal, no discharge. [] Neck: Normal range of motion, no tenderness, supple, no stridor. [] Cardiovascular:Heart rate regular rhythm, no murmur [] Lungs & Thorax: Bilateral breath sounds clear to auscultation [] Abdomen: Bowel sounds normal, soft, no tenderness, no masses, no pulsatile masses. [] Skin: Warm, dry, no erythema, no rash. [] Back: No tenderness, no CVA tenderness. [] Extremities: No tenderness, no cyanosis, no clubbing, ROM intact, no edema. [] Neurologic: Alert and oriented X 3, normal motor function, normal sensory function, no focal deficits noted. [] Psychologic: Affect normal, judgement normal, mood normal. [] Current Patient Data Vital Signs Vital Signs Date Time Temp Pulse Resp B/P (MAP) Pulse Ox O2 Delivery O2 Flow Rate FiO2 04/29/18 07:50 98.7 89 18 97 Room Air EKG EKG [] Radiology/Procedures Radiology/Procedures [] Course & Med Decision Making Course & Med Decision Making Pertinent Labs and Imaging studies reviewed. (See chart for details) [] Dragon Disclaimer Dragon Disclaimer This electronic medical record was generated, in whole or in part, using a voice recognition dictation system. Departure Departure: Impression: Primary Impression: Yeast infection of the vagina Additional Impression: UTI (urinary tract infection) Disposition: 01 HOME, SELF-CARE Condition: STABLE Referrals: PCP,NO (PCP) Patient Instructions: Candidal Vulvovaginitis, [id number], Urinary Tract Infection Additional Instructions: Return to the emergency department with any new or concerning symptoms Scripts Nitrofurantoin Monohyd/M-Cryst (MACROBID 100 MG CAPSULE) 100 Mg Capsule 1 CAP PO BID for UTI, #10 CAP Prov: MARGA TURCIOS DO 04/29/18 Problem Qualifiers Additional Impression: UTI (urinary tract infection) Urinary tract infection type: acute cystitis Hematuria presence: without hematuria Qualified Codes: N30.00 - Acute cystitis without hematuria MARGA TURCIOS DO Apr 29, 2018 08:50
[2018-04-29] MEDS ORDERED: FLUCONAZOLE 100 MG TABLET. PO ONE (08:55)
[2018-04-29 09:38] LABS: BILIRUBIN,URINE NEG (NEG); CLARITY,URINE CLOUDY; COLOR,URINE YELLOW; GLUCOSE,URINE NEG (NEG)
[2018-04-29 09:39] LABS: BACTERIA,URINE MANY /HPF (0-FEW); NITRITE,URINE NEG (NEG); UROBILINOGEN,URINE 0.2 mg/dL (0.2 mg/dL); WBC,URINE >40 /HPF (0-4)
[2018-04-29 09:40] LABS: SQUAMOUS EPITHELIAL CELL,UR MOD /LPF
[2018-04-29] MEDS ORDERED: NITR100C62 PO (09:54)
[2018-04-29 10:23] VITALS: BP 110/70
== END 2018-04-29 10:24 | disposition home or self-care (01) ==
LOC: ER 07:45
DX: B37.3 Candidiasis of vulva and vagina (principal); N30.00 Acute cystitis without hematuria
CPT/HCPCS: 36415; 81001; 81025; 87086; 87491; 87591; 99284

== ENCOUNTER 2018-07-29 10:47 | Emergency (ER) | payer OTHER ==
[~2018-07-29] VITALS: Ht 170.2 cm; Wt 92.0 kg
[~2018-07-29 10:47] MED LIST changes: +NITR100C62 PO
[2018-07-29 11:18] LABS: BILIRUBIN,URINE NEG (NEG); CLARITY,URINE CLOUDY; COLOR,URINE YELLOW; GLUCOSE,URINE NEG (NEG); NITRITE,URINE POS (NEG); UROBILINOGEN,URINE 0.2 mg/dL (0.2 mg/dL)
[2018-07-29 11:19] LABS: BACTERIA,URINE MANY /HPF (0-FEW); RBC,URINE RARE /HPF (0-2); SQUAMOUS EPITHELIAL CELL,UR OCC /LPF; U PREG PATIENT NEGATIVE (NEG); WBC,URINE >40 /HPF (0-4)
[2018-07-29] MEDS ORDERED: cefTRIAXone IM 1 GM VIAL IM ONE (11:30)
[2018-07-29] MEDS ORDERED: CEPH-264 PO (11:32)
--- NOTE | 2018-07-29 11:32 | PHYS DOC ---
Past History Past Medical History: No Pertinent History Past Surgical History: No Surgical History Smoking: Non-smoker Alcohol Use: None Drug Use: None Adult General Chief Complaint Chief Complaint: URINARY FREQUENCY HPI HPI Patient is a 22 year old female who presents with complaining of dysuria for 1 week. Patient complaining of painful urination at the end of her urination for the last 1 week without urinary frequency, abdominal pain, nausea and vomiting, fever and chills, vaginal bleeding or discharge, . LMP was July 03. Patient had previous history of UTI. Review of Systems Review of Systems Constitutional: Denies fever or chills [] Eyes: Denies change in visual acuity, redness, or eye pain [] HENT: Denies nasal congestion or sore throat [] Respiratory: Denies cough or shortness of breath [] Cardiovascular: No additional information not addressed in HPI [] GI: Denies abdominal pain, nausea, vomiting, bloody stools or diarrhea [] : Denies hematuria, reports dysuria Musculoskeletal: Denies back pain or joint pain [] Integument: Denies rash or skin lesions [] Neurologic: Denies headache, focal weakness or sensory changes [] Endocrine: Denies polyuria or polydipsia [] All other systems were reviewed and found to be within normal limits, except as documented in this note. Current Medications Current Medications Current Medications Medications (Trade) Dose Ordered Sig/Krystin Start Time Stop Time Status Last Admin Dose Admin Ceftriaxone Sodium (Rocephin Im) 1 gm 1X ONCE 07/29/18 11:30 07/29/18 11:31 UNV Allergies Allergies Allergies Coded Allergies Type Severity Reaction Last Updated Verified No Known Drug Allergies 02/23/18 No Physical Exam Physical Exam Constitutional: Well developed, well nourished, no acute distress, non-toxic appearance. [] HENT: Normocephalic, atraumatic, oropharynx moist. [] Eyes: PERRLA, EOMI, conjunctiva normal, no discharge. [] Neck: Normal range of motion, no tenderness, supple, no stridor. [] Cardiovascular:Heart rate regular rhythm, no murmur [] Lungs & Thorax: Bilateral breath sounds clear to auscultation [] Abdomen: Bowel sounds normal, soft, no tenderness, no masses, no pulsatile masses. [] Skin: Warm, dry, no erythema, no rash. [] Back: No tenderness, no CVA tenderness. [] Extremities: No tenderness, no cyanosis, no clubbing, ROM intact, no edema. [] Neurologic: Alert and oriented X 3, normal motor function, normal sensory function, no focal deficits noted. [] Psychologic: Affect normal, judgement normal, mood normal. [] Current Patient Data Vital Signs Vital Signs Date Time Temp Pulse Resp B/P (MAP) Pulse Ox O2 Delivery O2 Flow Rate FiO2 07/29/18 10:51 98.4 90 18 99 Room Air Lab Results Laboratory Tests Test 07/29/18 11:00 Urine Collection Type Unknown Urine Color Yellow Urine Clarity Cloudy Urine pH 6.0 Urine Specific [place] 1.025 Urine Protein Neg (NEG-TRACE) Urine Glucose (UA) Neg mg/dL (NEG) Urine Ketones (Stick) Neg mg/dL (NEG) Urine Blood Trace (NEG) Urine Nitrite Pos (NEG) Urine Bilirubin Neg (NEG) Urine Urobilinogen Dipstick 0.2 mg/dL (0.2 mg/dL) Urine Leukocyte Esterase Large (NEG) Urine RBC Rare /HPF (0-2) Urine WBC >40 /HPF (0-4) Urine Squamous Epithelial Cells Occ /LPF Urine Bacteria Many /HPF (0-FEW) Urine Test Negative (NEG) EKG EKG [] Radiology/Procedures Radiology/Procedures [] Course & Med Decision Making Course & Med Decision Making Pertinent Labs reviewed. (See chart for details) Evaluation of patient in ER showed 22-year-old female patient with complaining of dysuria for 1 week. Patient had unremarkable physical exam. Patient this was negative and UA showed more than 40 WBC urine. She had a shot of Rocephin in ER and discharged home with prescription of Keflex with instruction to increase fluid intake and frequent urination. Dragon Disclaimer Dragon Disclaimer This electronic medical record was generated, in whole or in part, using a voice recognition dictation system. Departure Departure: Impression: Primary Impression: Urinary tract infection Disposition: HOME, SELF-CARE (at 1140) Condition: STABLE Referrals: PCP,NO (PCP) Patient Instructions: Urinary Tract Infection Additional Instructions: Drink plenty of liquids Follow-up with your primary care physician in 3-5 days Return to ER if not getting better Scripts Cephalexin (KEFLEX) 500 Mg Capsule 2 CAP PO Q12HR for infection, #28 CAP Prov: KOUSHA,RORY MD 07/29/18 RORY JACOBS MD Jul 29, 2018 11:32
[2018-07-29 11:40] VITALS: BP 122/62
== END 2018-07-29 11:50 | disposition home or self-care (01) ==
LOC: ER 10:47
DX: N39.0 Urinary tract infection, site not specified (principal)
CPT/HCPCS: 81001; 81025; 87086; 87186; 96372; 99283; J0696

== ENCOUNTER 2018-09-11 12:59 | Emergency (ER) | payer OTHER ==
[~2018-09-11 12:59] MED LIST changes: +CEPH-264 PO
[2018-09-11 13:28] VITALS: BP 119/70
[2018-09-11 13:52] LABS: CLARITY,URINE HAZY; COLOR,URINE YELLOW
[2018-09-11 13:53] LABS: BACTERIA,URINE FEW /HPF (0-FEW); BILIRUBIN,URINE NEG (NEG); GLUCOSE,URINE NEG (NEG); NITRITE,URINE NEG (NEG); SQUAMOUS EPITHELIAL CELL,UR MANY /LPF; U PREG PATIENT NEGATIVE (NEG); UROBILINOGEN,URINE 0.2 mg/dL (0.2 mg/dL)
[2018-09-11] MEDS ORDERED: SULF20OR5 PO (14:05)
[2018-09-11] MEDS ORDERED: PHEN100T82 PO (14:05)
--- NOTE | 2018-09-11 14:05 | PHYS DOC ---
Past History Past Medical History: No Pertinent History Past Surgical History: No Surgical History Smoking: Non-smoker Alcohol Use: None Drug Use: None Adult General Chief Complaint Chief Complaint: PAIN ON URINATION [facility] Patient is a 22 year old female who presents with complaining of urinary frequency and dysuria since yesterday. Patient states she had diagnosis of UTI about 2 weeks ago but was not able to finish the antibiotic because of medication was nausea and she was not able to swallow. Patient denies fever and chills, nausea and vomiting, vaginal bleeding or discharge and . Review of Systems Review of Systems Constitutional: Denies fever or chills [] Eyes: Denies change in visual acuity, redness, or eye pain [] HENT: Denies nasal congestion or sore throat [] Respiratory: Denies cough or shortness of breath [] Cardiovascular: No additional information not addressed in HPI [] GI: Denies abdominal pain, nausea, vomiting, bloody stools or diarrhea [] : Reports dysuria and frequency Musculoskeletal: Denies back pain or joint pain [] Integument: Denies rash or skin lesions [] Neurologic: Denies headache, focal weakness or sensory changes [] Endocrine: Denies polyuria or polydipsia [] All other systems were reviewed and found to be within normal limits, except as documented in this note. Allergies Allergies Allergies Coded Allergies Type Severity Reaction Last Updated Verified No Known Drug Allergies 02/23/18 No Physical Exam Physical Exam Constitutional: Well developed, well nourished, no acute distress, non-toxic appearance. [] HENT: Normocephalic, atraumatic. Eyes: PERRLA, EOMI, conjunctiva normal, no discharge. [] Neck: Normal range of motion, no tenderness, supple, no stridor. [] Cardiovascular:Heart rate regular rhythm, no murmur [] Lungs & Thorax: Bilateral breath sounds clear to auscultation [] Abdomen: Bowel sounds normal, soft, no tenderness, no masses, no pulsatile masses. [] Skin: Warm, dry, no erythema, no rash. [] Back: No tenderness, no CVA tenderness. [] Extremities: No tenderness, no cyanosis, no clubbing, ROM intact, no edema. [] Neurologic: Alert and oriented X 3, normal motor function, normal sensory function, no focal deficits noted. [] Psychologic: Affect normal, judgement normal, mood normal. [] Current Patient Data Vital Signs Vital Signs Date Time Temp Pulse Resp B/P (MAP) Pulse Ox O2 Delivery O2 Flow Rate FiO2 09/11/18 13:28 97.7 91 18 97 Room Air EKG EKG [] Radiology/Procedures Radiology/Procedures [] Course & Med Decision Making Course & Med Decision Making Pertinent Labs reviewed. (See chart for details) discharge: I've spoken with the patient and/or caregivers. I've explained the patient's condition, diagnosis and treatment plan based on information available to me at this time. I've answered the patient's and/or caregivers questions and addressed any concerns. The patient and/or caregivers have a good understanding the patient's diagnosis, condition and treatment plan as can be expected at this point. Vital signs have been stabilized. The patient's condition is stable for discharge from the emergency department. The patient will pursue further outpatient evaluation with her primary care provider or other designated consulting physician as outlined in the discharge instructions. Patient and/or caregivers are agreeable to this plan of care and follow-up instructions have been explained in detail. The patient and/or caregivers have received these instructions in written format and expressed understanding of these discharge instructions. The patient and her caregivers are aware that if any significant change in condition or worsening of symptoms should prompt him to immediately return to this of the closest emergency department. If an emergent department is not readily available I would encourage him to call 911. Shaniaon Disclaimer Dragon Disclaimer This electronic medical record was generated, in whole or in part, using a voice recognition dictation system. Departure Departure: Impression: Primary Impression: Urinary tract infection, recurrent Disposition: HOME, SELF-CARE (at 1401) Condition: STABLE Referrals: PCP,NO (PCP) Patient Instructions: Dysuria, Urinary Tract Infection Additional Instructions: Drink plenty of liquids Follow-up with your primary care physician in 3-5 days Return to ER if not getting better Scripts Sulfamethoxazole/Trimethoprim (Sulfatrim 800-160 mg/20 ml Jodi) 20 Ml Oral.susp 20 ML PO BID for infection for 7 Days, #280 LIQUID Prov: RORY JACBOS MD 09/11/18 Phenazopyridine Hcl (PYRIDIUM) 100 Mg Tablet 100 MG PO BID for dysuria, #14 TAB Prov: RORY JACOBS MD 09/11/18 RORY JACOBS MD Sep 11, 2018 14:05
== END 2018-09-11 14:07 | disposition home or self-care (01) ==
LOC: ER 12:59
DX: N39.0 Urinary tract infection, site not specified (principal)
CPT/HCPCS: 81001; 81025; 87086; 99283

== ENCOUNTER 2018-09-18 07:57 | Emergency (ER) | payer OTHER ==
[~2018-09-18] VITALS: Ht 167.6 cm; Wt 86.2 kg
[~2018-09-18 07:57] MED LIST changes: +SULF20OR5 PO
[2018-09-18 08:03] VITALS: BP 114/65
[2018-09-18 08:31] LABS: BILIRUBIN,URINE NEG (NEG); CLARITY,URINE TURBID; COLOR,URINE YELLOW; GLUCOSE,URINE NEG (NEG); NITRITE,URINE POS (NEG); UROBILINOGEN,URINE 1 mg/dL (0.2 mg/dL)
[2018-09-18 08:35] LABS: U PREG PATIENT NEGATIVE (NEG)
--- NOTE | 2018-09-18 08:39 | PHYS DOC ---
Past History Past Medical History: No Pertinent History Past Surgical History: No Surgical History Smoking: Non-smoker Alcohol Use: None Drug Use: None Adult General Chief Complaint Chief Complaint: PAIN ON URINATION [facility] Patient is a 22 year old female who presents with complaining of painful urination. Patient complaining of painful urination for more days and seen in this emergency room and treated for UTI but states her symptoms is not getting better. Patient complaining of pain in genital area without vaginal discharge, nausea and vomiting, fever and chills, abdominal pain. Patient had frequent emergency room visits with UTI and other genital problem. Patient is and states she has history of gonorrhea and denies having new sexual partner. Review of Systems Review of Systems Constitutional: Denies fever or chills [] Eyes: Denies change in visual acuity, redness, or eye pain [] HENT: Denies nasal congestion or sore throat [] Respiratory: Denies cough or shortness of breath [] Cardiovascular: No additional information not addressed in HPI [] GI: Denies abdominal pain, nausea, vomiting, bloody stools or diarrhea [] : Reports dysuria, denies hematuria or frequency Musculoskeletal: Denies back pain or joint pain [] Integument: Denies rash or skin lesions [] Neurologic: Denies headache, focal weakness or sensory changes [] Endocrine: Denies polyuria or polydipsia [] All other systems were reviewed and found to be within normal limits, except as documented in this note. Allergies Allergies Allergies Coded Allergies Type Severity Reaction Last Updated Verified No Known Drug Allergies 02/23/18 No Physical Exam Physical Exam Constitutional: Well developed, well nourished, no acute distress, non-toxic appearance. [] HENT: Normocephalic, atraumatic Eyes: PERRLA, EOMI, conjunctiva normal, no discharge. [] Neck: Normal range of motion, no tenderness, supple, no stridor. [] Cardiovascular:Heart rate regular rhythm, no murmur [] Lungs & Thorax: Bilateral breath sounds clear to auscultation [] Abdomen: Bowel sounds normal, soft, no tenderness, no masses, no pulsatile masses. 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 Skin: Warm, dry, no erythema, no rash. [] Back: No tenderness, no CVA tenderness. [] Extremities: No tenderness, no cyanosis, no clubbing, ROM intact, no edema. [] Neurologic: Alert and oriented X 3, normal motor function, normal sensory function, no focal deficits noted. [] Psychologic: Affect normal, judgement normal, mood normal. [] Current Patient Data Vital Signs Vital Signs Date Time Temp Pulse Resp B/P (MAP) Pulse Ox O2 Delivery O2 Flow Rate FiO2 09/18/18 08:03 98.1 87 20 98 Room Air EKG EKG [] Radiology/Procedures Radiology/Procedures [] Course & Med Decision Making Course & Med Decision Making Pertinent Labs reviewed. (See chart for details) Evaluation of patient in ER showed 22-year-old female patient with frequent emergency room visits and UTI presented with complaining of urinary symptom and not improving after taking medication was given one week ago. Patient had unremarkable physical exam. In vaginal exam she had moderate amount of discharge. Wet mount showed bacterial vaginitis. UA showed positive nitrate and trace leukocyte. GC chlamydia is pending and because of not having any new sexual partners I do not have plan to give treatments at this time. Plan to discharge patient home with diagnosis of UTI and bacterial vaginitis with prescription of Keflex and depression and instruction to follow up with her primary care physician for evaluation of recurrent UTI. Dragon Disclaimer Dragon Disclaimer This electronic medical record was generated, in whole or in part, using a voice recognition dictation system. Departure Departure: Impression: Primary Impression: Urinary tract infection, recurrent Additional Impression: Bacterial vaginitis Disposition: HOME, SELF-CARE (at 08) Condition: STABLE Referrals: PCP,NO (PCP) Patient Instructions: Urinary Tract Infection, Vaginitis, [id number] Additional Instructions: Drink plenty of liquids Follow-up with your primary care physician in 3-5 days for evaluation of frequent urinary tract infection Return to ER if not getting better Scripts Metronidazole (FLAGYL) 500 Mg Tablet 1 TAB PO BID for bacterial vaginitis, #14 TAB Prov: RORY JACOBS MD 09/18/18 Cephalexin (KEFLEX) 500 Mg Capsule 2 CAP PO Q12HR for infection, #28 CAP Prov: RORY JACOBS MD 09/18/18 Problem Qualifiers RORY JACOBS MD Sep 18, 2018 08:39
[2018-09-18] MEDS ORDERED: METR500T PO (09:03)
[2018-09-18] MEDS ORDERED: CEPH-264 PO (09:03)
[2018-09-18] MEDS ORDERED: IBUPROFEN 800 MG TABLET. PO ONE (09:15)
[2018-09-19 13:15] LABS: CHLAMYDIA PROBE Negative (Negative)
== END 2018-09-18 09:14 | disposition home or self-care (01) ==
LOC: ER 07:57
DX: N39.0 Urinary tract infection, site not specified (principal); N76.0 Acute vaginitis; B96.89 Other specified bacterial agents as the cause of diseases classified elsewhere
CPT/HCPCS: 36415; 81003; 81025; 87086; 87491; 87591; 99283; Q0111

== ENCOUNTER → 2018-10-30 | Outpatient (CLI) | payer OTHER ==
[~2018-10-30] MED LIST changes: +METR500T PO
--- NOTE | 2018-10-30 16:31 | RAD ---
EXAM: Renal sonogram. HISTORY: Urinary tract infection. TECHNIQUE: Sonographic imaging the kidneys and bladder was performed. COMPARISON: CT dated 02/23/2018. FINDINGS: The kidneys are normal in size. No solid or cystic renal lesion is seen. There is no hydronephrosis. The urinary bladder is unremarkable. The prevoid bladder volume is 324 cc and a post void bladder volume is 21 cc. The ureteral jets are both seen. IMPRESSION: Sonographically unremarkable kidneys. Electronically signed by: Irish Chand MD (10/30/2018 4:28 PM) [id number]
== END | disposition home or self-care (01) ==
LOC: US 14:34
PROVIDERS: ATTEND Registered Nurse
DX: N39.0 Urinary tract infection, site not specified (principal)
CPT/HCPCS: 76770

== ENCOUNTER 2018-11-10 12:28 | Emergency (ER) | payer OTHER ==
[~2018-11-10] VITALS: Ht 170.2 cm; Wt 86.2 kg
[2018-11-10 13:50] LABS: BILIRUBIN,URINE NEG (NEG); CLARITY,URINE HAZY; COLOR,URINE YELLOW; GLUCOSE,URINE NEG (NEG)
[2018-11-10 13:51] LABS: BACTERIA,URINE FEW /HPF (0-FEW); NITRITE,URINE NEG (NEG); RBC,URINE 0 /HPF (0-2); SQUAMOUS EPITHELIAL CELL,UR MOD /LPF; UROBILINOGEN,URINE 1 mg/dL (0.2 mg/dL); WBC,URINE OCC /HPF (0-4)
[2018-11-10] MEDS ORDERED: PHEN100T82 PO (14:05)
--- NOTE | 2018-11-10 14:05 | PHYS DOC ---
Past History Past Medical History: UTI Past Surgical History: No Surgical History Smoking: Non-smoker Alcohol Use: None Drug Use: None Adult General Chief Complaint Chief Complaint: PAIN ON URINATION [facility] Patient is a 23 year old female who presents with running of painful urination. Patient states she has had history of frequent UTI and since yesterday had painful urination with burning during nation. Patient complaining of discomfort 14 suprapubic area. Patient denies vaginal bleeding or discharge, fever and chills, nausea and vomiting, concern for STD. Review of Systems Review of Systems Constitutional: Denies fever or chills [] Eyes: Denies change in visual acuity, redness, or eye pain [] HENT: Denies nasal congestion or sore throat [] Respiratory: Denies cough or shortness of breath [] Cardiovascular: No additional information not addressed in HPI [] GI: Denies abdominal pain, nausea, vomiting, bloody stools or diarrhea [] : Denies hematuria, reports dysuria[] Musculoskeletal: Denies back pain or joint pain [] Integument: Denies rash or skin lesions [] Neurologic: Denies headache, focal weakness or sensory changes [] Endocrine: Denies polyuria or polydipsia [] All other systems were reviewed and found to be within normal limits, except as documented in this note. Allergies Allergies Allergies Coded Allergies Type Severity Reaction Last Updated Verified No Known Drug Allergies 02/23/18 No Physical Exam Physical Exam Constitutional: Well developed, well nourished, no acute distress, non-toxic appearance. [] HENT: Normocephalic, atraumatic. Eyes: PERRLA, EOMI, conjunctiva normal, no discharge. [] Neck: Normal range of motion, no tenderness, supple, no stridor. [] Cardiovascular:Heart rate regular rhythm, no murmur [] Lungs & Thorax: Bilateral breath sounds clear to auscultation [] Abdomen: Bowel sounds normal, soft, no tenderness, no masses, no pulsatile masses. [] Skin: Warm, dry, no erythema, no rash. [] Back: No tenderness, no CVA tenderness. [] Extremities: No tenderness, no cyanosis, no clubbing, ROM intact, no edema. [] Neurologic: Alert and oriented X 3, normal motor function, normal sensory function, no focal deficits noted. [] Psychologic: Affect normal, judgement normal, mood normal. [] Current Patient Data Vital Signs Vital Signs Date Time Temp Pulse Resp B/P (MAP) Pulse Ox O2 Delivery O2 Flow Rate FiO2 11/10/18 12:47 97.7 87 18 97 Room Air Lab Results Laboratory Tests Test 11/10/18 13:30 11/10/18 13:33 Urine Collection Type Unknown Urine Color Yellow Urine Clarity Hazy Urine pH 7.0 Urine Specific [place] 1.020 Urine Protein Neg (NEG-TRACE) Urine Glucose (UA) Neg mg/dL (NEG) Urine Ketones (Stick) Neg mg/dL (NEG) Urine Blood Neg (NEG) Urine Nitrite Neg (NEG) Urine Bilirubin Neg (NEG) Urine Urobilinogen Dipstick 1 mg/dL (0.2 mg/dL) Urine Leukocyte Esterase Small (NEG) Urine RBC 0 /HPF (0-2) Urine WBC Occ /HPF (0-4) Urine Squamous Epithelial Cells Mod /LPF Urine Bacteria Few /HPF (0-FEW) Urine Mucus Mod /LPF POC Urine HCG, Qualitative hcg negative (Negative) EKG EKG [] Radiology/Procedures Radiology/Procedures [] Course & Med Decision Making Course & Med Decision Making Pertinent Labs reviewed. (See chart for details) discharge: I've spoken with the patient and/or caregivers. I've explained the patient's condition, diagnosis and treatment plan based on information available to me at this time. I've answered the patient's and/or caregivers questions and addressed any concerns. The patient and/or caregivers have a good understanding the patient's diagnosis, condition and treatment plan as can be expected at this point. Vital signs have been stabilized. The patient's condition is stable for discharge from the emergency department. The patient will pursue further outpatient evaluation with her primary care provider or other designated consulting physician as outlined in the discharge instructions. Patient and/or caregivers are agreeable to this plan of care and follow-up instructions have been explained in detail. The patient and/or caregivers have received these instructions in written format and expressed understanding of these discharge instructions. The patient and her caregivers are aware that if any significant change in condition or worsening of symptoms should prompt him to immediately return to this of the closest emergency department. If an emergent department is not readily available I would encourage him to call 911. Rubens Disclaimer Rubens Disclaimer This electronic medical record was generated, in whole or in part, using a voice recognition dictation system. Departure Departure: Impression: Primary Impression: Dysuria Disposition: HOME, SELF-CARE (at 1403) Condition: STABLE Referrals: PCP,ALEX (PCP) Patient Instructions: Dysuria Additional Instructions: Drink plenty of liquids Follow-up with your primary care physician in 3-5 days Return to ER if not getting better Scripts Phenazopyridine Hcl (PYRIDIUM) 100 Mg Tablet 100 MG PO BID for dysuria, #14 TAB Prov: RORY JACOBS MD 11/10/18 RORY JACOBS MD Nov 10, 2018 14:05
== END 2018-11-10 14:09 | disposition home or self-care (01) ==
LOC: ER 12:28
DX: R30.0 Dysuria (principal); Z87.440 Personal history of urinary (tract) infections
CPT/HCPCS: 81001; 81025; 87086; 87186; 99283

== ENCOUNTER 2019-03-01 22:04 | Emergency (ER) | payer OTHER ==
[~2019-03-01] VITALS: Ht 170.2 cm; Wt 92.5 kg
[~2019-03-01 22:04] MED LIST changes: +RANI-376 PO; -RANI150T21 PO
--- NOTE | 2019-03-01 22:59 | PHYS DOC ---
Past History Past Medical History: UTI Past Surgical History: No Surgical History Smoking: Non-smoker Alcohol Use: None Drug Use: None Adult General Chief Complaint Chief Complaint: VAGINAL PROBLEM HPI HPI Patient is a 23-year-old female who is been having heavy vaginal bleeding for several months. This has been intermittent. She denies any other bleeding or bruising including no bleeding from her gums as she brushes her teeth. Current episode started approximately 2 weeks ago. She is uncertain as to when her last menstrual period was due to this long-standing waxing and waning of bleeding. Denies any lightheadedness. Denies any chest pain or palpitations. Denies any dysuria or hematuria. She has not had any evaluation for this bleeding. Uncertain as to whether she is . She denies any pain. Nothing seems to make the symptoms better or worse.[] Review of Systems Review of Systems Constitutional: Denies fever or chills [] Eyes: Denies change in visual acuity, redness, or eye pain [] HENT: Denies nasal congestion or sore throat [] Respiratory: Denies cough or shortness of breath [] Cardiovascular: No chest pain or palpitations[] GI: Denies abdominal pain, nausea, vomiting, bloody stools or diarrhea [] : Denies dysuria or hematuria, see history of present illness [] Musculoskeletal: Denies back pain or joint pain [] Integument: Denies rash or skin lesions [] Neurologic: Denies headache, focal weakness or sensory changes [] Endocrine: Denies polyuria or polydipsia [] All other systems were reviewed and found to be within normal limits, except as documented in this note. Allergies Allergies Allergies Coded Allergies Type Severity Reaction Last Updated Verified No Known Drug Allergies 02/23/18 No Physical Exam Physical Exam Constitutional: Well developed, well nourished, no acute distress, non-toxic appearance. [] HENT: Normocephalic, atraumatic, bilateral external ears normal, oropharynx moist, no oral exudates, nose normal. [] Eyes: PERRLA, EOMI, conjunctiva normal, no discharge. [] Neck: Normal range of motion, no tenderness, supple, no stridor. [] Cardiovascular:Heart rate regular rhythm, no murmur [] Lungs & Thorax: Bilateral breath sounds clear to auscultation [] Abdomen: Bowel sounds normal, soft, no tenderness, no masses, no pulsatile masses. Exam: External genitalia: No lesions, no rash, no masses. Vaginal vault: There is dark blood in the vault. No other discharge is noted, no lacerations. Cervix: Parous os, mild blood from the os, the os is closed [] Skin: Warm, dry, no erythema, no rash. [] Back: No tenderness, no CVA tenderness. [] Extremities: No tenderness, no cyanosis, no clubbing, ROM intact, no edema. [] Neurologic: Alert and oriented X 3, normal motor function, normal sensory function, no focal deficits noted. [] Psychologic: Affect normal, judgement normal, mood normal. [] EKG EKG [] Radiology/Procedures Radiology/Procedures PROCEDURE: TRANSVAGINAL OB ultrasound less than 14 weeks to include transabdominal and transvaginal imaging 02/28/2019 CLINICAL HISTORY: First trimester with vaginal bleeding. TECHNIQUE: Using the distended urinary bladder as a sonographic window, a real-time ultrasound examination of the pelvis was performed. Additionally in an attempt to better evaluate the uterus and adnexa, a transvaginal ultrasound study was performed. Multiple images were obtained. FINDINGS: The uterus is within normal limits in size and echogenicity. It measures 10 x 7.4 x 5.4 cm in longitudinal, transverse, and AP dimensions. The endometrial echo complex measures 1.5 cm in thickness which is within normal limits. The endometrium is heterogeneous. No gestational sac is seen within the uterus. Both ovaries are within normal limits in size and echogenicity. The right ovary measures 2.5 x 1.7 x 1.5 cm in size. The left ovary measures 2.8 x 1.8 x 1.7 cm in size. No adnexal mass is seen. Very small amount of free fluid is seen within the pelvis. IMPRESSION: No IUP is seen. The above ultrasound findings could be seen with a very early IUP, missed spontaneous or possibly due to an occult ectopic . Clinical correlation and correlation with the patient's serial beta hCG level is recommended.[] Course & Med Decision Making Course & Med Decision Making Pertinent Labs and Imaging studies reviewed. (See chart for details) ED course: Patient arrived, was placed in bed, and tolerated exam well. After the return of the positive urine test, the discussion with the patient reveals that she is 2 para 1, and uncertain as to what her blood type is. After the return of the laboratory and imaging findings, these were discussed with the patient who voiced understanding. All questions were answered. She was discharged in improved condition. Medical decision making: Patient appears to be undergoing a miscarriage. There is no evidence of an ectopic although there is still a possibility of 1 based on the ultrasound findings. No evidence of a ruptured ectopic. No evidence of anemia area did no evidence of a urinary tract infection nor ketonuria. No evidence of tubo-ovarian abscess, nor pelvic inflammatory disease.[] Dragon Disclaimer Dragon Disclaimer This electronic medical record was generated, in whole or in part, using a voice recognition dictation system. Departure Departure: Impression: Primary Impression: Threatened miscarriage Disposition: 01 HOME, SELF-CARE Condition: IMPROVED Referrals: PCPALEX (PCP) [facility] Call this morning to arrange appointment to be seen in the next 2 days Patient Instructions: Miscarriage, Threatened Miscarriage Additional Instructions: Follow-up with your regular doctor in 2 days. Your quantitative test level is 5137 today. In a normal it should double every 2-3 days. This needs to be rechecked in 2 days and followed for doubling or to ensure that it goes back down to 0. Return to the ER if worsening pain or any other concerns. ELENA WALLIS DO Mar 01, 2019 22:59
[2019-03-02] MEDS ORDERED: IV NORMAL SALINE 1,000ML 1,000 ML IV ONE (00:45)
[2019-03-02 00:48] LABS: BASO % 0 % (0-3); EOS # 0.1 x10^3/uL (0.0-0.7); EOS % 1 % (0-3); HEMATOCRIT 35.2 % (36.0-47.0); HEMOGLOBIN 11.3 g/dL (12.0-15.5); LYMPH # 2.9 x10^3/uL (1.0-4.8); LYMPH % 32 % (24-48); MEAN CORPUSCULAR HEMOGLOBIN 27 pg (25-35); MEAN CORPUSCULAR HGB CONC 32 g/dL (31-37); MEAN CORPUSCULAR VOLUME 85 fL (79-100); MONO # 0.7 x10^3/uL (0.0-1.1); MONO % 8 % (0-9); NEUT # 5.3 x10^3uL (1.8-7.7); NEUT % 58 % (31-73); PLATELET COUNT 349 x10^3/uL (140-400); RED BLOOD COUNT 4.16 x10^6/uL (3.50-5.40); WHITE BLOOD COUNT 9.1 x10^3/uL (4.0-11.0)
[2019-03-02 00:56] LABS: CALCIUM 9.6 mg/dL (8.5-10.1); CREATININE 0.7 mg/dL (0.6-1.0); GFR 127.8; POTASSIUM 4.1 mmol/L (3.5-5.1)
[2019-03-02 01:52] LABS: BACTERIA,URINE 0 /HPF (0-FEW); BILIRUBIN,URINE NEG (NEG); CLARITY,URINE CLEAR; COLOR,URINE YELLOW; GLUCOSE,URINE NEG (NEG); NITRITE,URINE NEG (NEG); RBC,URINE OCC /HPF (0-2); SQUAMOUS EPITHELIAL CELL,UR FEW /LPF; UROBILINOGEN,URINE 1 mg/dL (0.2 mg/dL); WBC,URINE OCC /HPF (0-4)
--- NOTE | 2019-03-02 01:54 | RAD ---
OB ultrasound less than 14 weeks to include transabdominal and transvaginal imaging 02/28/2019 CLINICAL HISTORY: First trimester with vaginal bleeding. TECHNIQUE: Using the distended urinary bladder as a sonographic window, a real-time ultrasound examination of the pelvis was performed. Additionally in an attempt to better evaluate the uterus and adnexa, a transvaginal ultrasound study was performed. Multiple images were obtained. FINDINGS: The uterus is within normal limits in size and echogenicity. It measures 10 x 7.4 x 5.4 cm in longitudinal, transverse, and AP dimensions. The endometrial echo complex measures 1.5 cm in thickness which is within normal limits. The endometrium is heterogeneous. No gestational sac is seen within the uterus. Both ovaries are within normal limits in size and echogenicity. The right ovary measures 2.5 x 1.7 x 1.5 cm in size. The left ovary measures 2.8 x 1.8 x 1.7 cm in size. No adnexal mass is seen. Very small amount of free fluid is seen within the pelvis. IMPRESSION: No IUP is seen. The above ultrasound findings could be seen with a very early IUP, missed spontaneous or possibly due to an occult ectopic . Clinical correlation and correlation with the patient's serial beta hCG level is recommended. Electronically signed by: Leonardo Coburn MD (03/02/2019 1:51 AM) [facility]
[2019-03-02 23:00] VITALS: BP 147/66
== END 2019-03-02 02:36 | disposition home or self-care (01) ==
LOC: ER 22:04
DX: O20.0 Threatened abortion (principal); O23.41 Unspecified infection of urinary tract in pregnancy, first trimester; Z3A.00 Weeks of gestation of pregnancy not specified
CPT/HCPCS: 36415; 76817; 80048; 81001; 81025; 84702; 85025; 85610; 86900; 86901; 87491; 87591; 99285; Q0111

== ENCOUNTER 2019-03-11 02:08 | Emergency (ER) | payer OTHER ==
[~2019-03-11] VITALS: Ht 170.2 cm; Wt 92.5 kg
--- NOTE | 2019-03-11 02:38 | PHYS DOC ---
Past History Past Medical History: UTI Past Surgical History: No Surgical History Smoking: Non-smoker Alcohol Use: None Drug Use: None Adult General Chief Complaint Chief Complaint: VAGINAL BLEEDING [facility] HPI Patient is a 23-year-old female who presents with pelvic pain with vaginal bleeding and indicates that she has been seen on 2 prior visits for similar complaints. Patient indicates that her last visit her Quant was down. Patient states that she has had bleeding for the last 2-3 weeks. She states that amount of bleeding has not changed. She also complains of headache. She rates the pain in her head and her abdomen at about a 7 out of 10. Patient also was noted to be febrile here in the emergency room with temperature of 101.7. She indicates that she was not aware that she was running a fever. She denies any urinary discomfort but does admit to a sore throat.[] Review of Systems Review of Systems Constitutional: Positive fever and chills [] HENT: Positive sore throat [] Respiratory: Denies cough or shortness of breath [] Cardiovascular: No additional information not addressed in HPI [] GI: Complains of lower abdominal pain with nausea and vomiting. Denies diarrhea [] : Denies dysuria or hematuria [] Neurologic: Complains of headache without focal weakness or sensory changes [] All other systems were reviewed and found to be within normal limits, except as documented in this note. Allergies Allergies Allergies Coded Allergies Type Severity Reaction Last Updated Verified No Known Drug Allergies 02/23/18 No Physical Exam Physical Exam Constitutional: Well developed, well nourished, no acute distress, non-toxic appearance. [] HENT: Normocephalic, atraumatic, bilateral external ears normal, oropharynx moist, no oral exudates, nose normal. [] Eyes: PERRLA, EOMI, conjunctiva normal, no discharge. [] Neck: Normal range of motion, no tenderness, supple, no stridor. [] Cardiovascular:Heart rate regular rhythm, no murmur [] Lungs & Thorax: Bilateral breath sounds clear to auscultation [] Abdomen: Bowel sounds normal, soft, with lower abdominal tenderness. [] Skin: Warm, dry, no erythema, no rash. [] Extremities: No tenderness, no cyanosis, no clubbing, ROM intact, no edema. [] Neurologic: Alert and oriented X 3, normal motor function, normal sensory function. [] EKG EKG [] Radiology/Procedures Radiology/Procedures [] Impressions: PROCEDURE: OB LIMITED OB LIMITED Clinical Indication: , pelvic pain with vaginal bleeding. Quantitative beta hCG 03/02/2019 5137, 03/11/2019 1370. Comparison: Obstetric ultrasound, March 02, 2019. TECHNIQUE: Real-time ultrasound imaging of the pelvis using transabdominal window is performed. Findings: The maternal ovaries are not identified in the adnexa probably due to overlying bowel gas. No cul-de-sac free fluid is seen. No evidence of adnexal mass. Uterus measures 10 x 7.1 x 5.3 cm. There is trace of fluid in the endometrial canal. The endometrial stripe measures 15 mm. An intrauterine gestational sac is not identified. Color Doppler demonstrates hypervascularity towards the fundus adjacent to the endometrium. This hypervascularity was seen on the prior study and appears to localize to the myometrium as seen on prior transvaginal images. Clinical significance uncertain. IMPRESSION: 1. Intrauterine gestational sac is not identified, likely failed first trimester . 2. Trace amount of fluid in the endometrial canal. 3. The maternal ovaries are not seen. Electronically signed by: Melvin Greene MD (03/11/2019 5:53 AM) [facility] DICTATED AND SIGNED BY: MELVIN GREENE MD DATE: 03/11/19 0553 Course & Med Decision Making Course & Med Decision Making Pertinent Labs and Imaging studies reviewed. (See chart for details) A sugar moved to room upon arrival was evaluated by your medical staff after which a workup was initiated to include blood work, UA and ultrasound. Patient's blood work returned with findings of elevated white blood cell count with left shift. Patient also noted to have fever. Ultrasound appears consistent with completed miscarriage. Given recent miscarriage along with development of fever and lower abdominal pain, I do have concern for possibility of endometritis. Patient was given a dose of IV Unasyn 3 g while here in the emergency room. Upon completion of workup, patient's case was discussed with Dr. Brandt who recommends discharge home with prescription for continued antibiotic therapy for the next 7 days. He agrees with treatment with Augmentin and Flagyl. Patient has been provided with follow-up information with Dr. Brandt. Dragon Disclaimer Dragon Disclaimer This electronic medical record was generated, in whole or in part, using a voice recognition dictation system. Departure Departure: Impression: Primary Impression: Spontaneous miscarriage Additional Impression: Fever Disposition: HOME, SELF-CARE Condition: STABLE Referrals: PCPALEX (PCP) Patient Instructions: Fever, Miscarriage Additional Instructions: Call to schedule follow-up appointment with Dr. Brandt in the next 3-5 days. Take antibiotics as directed. Scripts Hydrocodone Bit/Acetaminophen (NORCO 5-325 TABLET) 1 Each Tablet 1 TAB PO PRN Q6HRS PRN for PAIN, #12 TAB 0 Refills Prov: GENET VENTURA Jr. DO 03/11/19 Ondansetron Hcl (ZOFRAN) 4 Mg Tablet 4 MG PO Q6HRS PRN for NAUSEA, #12 TAB Prov: GENET VENTURA Jr. DO 03/11/19 Metronidazole (FLAGYL) 500 Mg Tablet 500 MG PO TID for infection, #21 TAB Prov: GENET VENTURA Jr. DO 03/11/19 Amoxicillin/Potassium Clav (AUGMENTIN 875-125 TABLET) 1 Each Tablet 1 TAB PO BID for infection, #14 TAB Prov: GENET VENTURA Jr. DO 03/11/19 Problem Qualifiers Additional Impression: Fever Fever type: unspecified Qualified Codes: R50.9 - Fever, unspecified GENET VENTURA Jr. DO Mar 11, 2019 02:38
[2019-03-11] MEDS ORDERED: NALBUPHINE 10 MG/ML AMPUL. IV ONE (03:00)
[2019-03-11] MEDS ORDERED: ACETAMINOPHEN 500 MG TABLET PO ONE (03:00)
[2019-03-11] MEDS ORDERED: ONDANSETRON PF 4 MG/2 ML VIAL. IV ONE (03:00)
[2019-03-11] MEDS ORDERED: IV NORMAL SALINE 1,000ML 1,000 ML IV SCH (03:00)
[2019-03-11 03:27] LABS: BASO % 0 % (0-3); EOS % 0 % (0-3); HEMATOCRIT 33.6 % (36.0-47.0); HEMOGLOBIN 10.6 g/dL (12.0-15.5); LYMPH # 0.9 x10^3/uL (1.0-4.8); LYMPH % 6 % (24-48); MEAN CORPUSCULAR HEMOGLOBIN 26 pg (25-35); MEAN CORPUSCULAR HGB CONC 32 g/dL (31-37); MEAN CORPUSCULAR VOLUME 83 fL (79-100); MONO # 0.5 x10^3/uL (0.0-1.1); MONO % 3 % (0-9); NEUT # 14.8 x10^3uL (1.8-7.7); NEUT % 91 % (31-73); PLATELET COUNT 376 x10^3/uL (140-400); RED BLOOD COUNT 4.03 x10^6/uL (3.50-5.40); RED CELL DISTRIBUTION WIDTH 15.4 % (11.5-14.5); WHITE BLOOD COUNT 16.3 x10^3/uL (4.0-11.0)
[2019-03-11 03:40] LABS: ALBUMIN 3.6 g/dL (3.4-5.0); CALCIUM 9.4 mg/dL (8.5-10.1); DIRECT BILIRUBIN 0.1 mg/dL (0.0-0.2); GFR 84.7; MAGNESIUM 1.6 mg/dL (1.8-2.4); POTASSIUM 3.7 mmol/L (3.5-5.1); TOTAL BILIRUBIN 0.3 mg/dL (0.2-1.0); TOTAL PROTEIN 7.6 g/dL (6.4-8.2)
[2019-03-11 03:49] LABS: BACTERIA,URINE MOD /HPF (0-FEW); BILIRUBIN,URINE NEG (NEG); CLARITY,URINE HAZY; COLOR,URINE YELLOW; GLUCOSE,URINE NEG (NEG); NITRITE,URINE NEG (NEG); RBC,URINE OCC /HPF (0-2); UROBILINOGEN,URINE 0.2 mg/dL (0.2 mg/dL); WBC,URINE OCC /HPF (0-4)
[2019-03-11 03:50] LABS: SQUAMOUS EPITHELIAL CELL,UR FEW /LPF
[2019-03-11 04:34] LABS: % LYMPHS 15 % (24-48); % MONOS 3 % (0-10); % SEGS 82 % (35-66)
[2019-03-11 04:35] LABS: PLT ESTIMATE ADEQUATE (ADEQUATE)
[2019-03-11 04:36] LABS: ANISOCYTOSIS SLIGHT; HYPOCHROMIA SLIGHT; MICROCYTOSIS SLIGHT; TOXIC GRANULATION SLIGHT
[2019-03-11] MEDS ORDERED: AMPICILLIN/SULBACTAM 3 GM in IV NORMAL SALINE 100ML 100 ML IV ONE (05:00)
[2019-03-11] MEDS ORDERED: IV NORMAL SALINE 1,000ML 1,000 ML IV ONE (05:00)
[2019-03-11] MEDS ORDERED: AMPICILLIN/SULBACTAM 1.5 GM VIAL. IV ONE (05:23)
--- NOTE | 2019-03-11 05:56 | RAD ---
OB LIMITED Clinical Indication: , pelvic pain with vaginal bleeding. Quantitative beta hCG 03/02/2019 5137, 03/11/2019 1370. Comparison: Obstetric ultrasound, March 02, 2019. TECHNIQUE: Real-time ultrasound imaging of the pelvis using transabdominal window is performed. Findings: The maternal ovaries are not identified in the adnexa probably due to overlying bowel gas. No cul-de-sac free fluid is seen. No evidence of adnexal mass. Uterus measures 10 x 7.1 x 5.3 cm. There is trace of fluid in the endometrial canal. The endometrial stripe measures 15 mm. An intrauterine gestational sac is not identified. Color Doppler demonstrates hypervascularity towards the fundus adjacent to the endometrium. This hypervascularity was seen on the prior study and appears to localize to the myometrium as seen on prior transvaginal images. Clinical significance uncertain. IMPRESSION: 1. Intrauterine gestational sac is not identified, likely failed first trimester . 2. Trace amount of fluid in the endometrial canal. 3. The maternal ovaries are not seen. Electronically signed by: Melvin Landis MD (03/11/2019 5:53 AM) [facility]
[2019-03-11] MEDS ORDERED: METR500T PO (06:10)
[2019-03-11] MEDS ORDERED: HYDR-3165 PO (06:10)
[2019-03-11] MEDS ORDERED: ONDA4TAB7 PO (06:10)
[2019-03-11] MEDS ORDERED: AMOX1TAB61 PO (06:10)
[2019-03-11 06:11] VITALS: BP 107/79
== END 2019-03-11 06:28 | disposition home or self-care (01) ==
LOC: ER 02:08
DX: O03.9 Complete or unspecified spontaneous abortion without complication (principal); R51 Headache; J02.9 Acute pharyngitis, unspecified; R11.2 Nausea with vomiting, unspecified; Z87.440 Personal history of urinary (tract) infections
CPT/HCPCS: 36415; 76815; 80048; 80076; 81001; 83605; 83735; 84702; 85007; 85025; 87040; 87070; 87086; 87880; 96361; 96365; 96375; 99285; J0295; J2300; J2405; J7030

== ENCOUNTER 2019-06-14 07:16 | Emergency (ER) | payer MEDICAID, OTHER ==
[~2019-06-14] VITALS: Ht 170.2 cm; Wt 90.5 kg
[~2019-06-14 07:16] MED LIST changes: +AMOX1TAB61 PO; +HYDR-3165 PO; +ONDA4TAB7 PO
[2019-06-14 07:35] VITALS: BP 115/64
--- NOTE | 2019-06-14 07:35 | PHYS DOC ---
Past History Past Medical History: UTI Past Surgical History: No Surgical History Smoking: Non-smoker Alcohol Use: None Drug Use: None Adult General Chief Complaint Chief Complaint: VAGINAL PROBLEM HPI HPI 23-year-old female presents with vaginal swelling and vaginal discharge. The patient feels like she has had swelling in her genital area for about the last 1 week. She is also had a pasty, thick, white discharge. She has vaginal itching. She denies dysuria or increased urinary frequency. She denies bleeding. She does not believe she is . She is sexually active. She is concern for STD. She denies nausea, vomiting, diarrhea, fever, chills. She has no abdominal pain. Review of Systems Review of Systems Constitutional: Denies fever or chills [] Eyes: Denies change in visual acuity, redness, or eye pain [] HENT: Denies nasal congestion or sore throat [] Respiratory: Denies cough or shortness of breath [] Cardiovascular: No additional information not addressed in HPI [] GI: Denies abdominal pain, nausea, vomiting, bloody stools or diarrhea [] : Vaginal swelling, change in discharge[] Musculoskeletal: Denies back pain or joint pain [] Integument: Denies rash or skin lesions [] Neurologic: Denies headache, focal weakness or sensory changes [] Endocrine: Denies polyuria or polydipsia [] All other systems were reviewed and found to be within normal limits, except as documented in this note. Allergies Allergies Allergies Coded Allergies Type Severity Reaction Last Updated Verified No Known Drug Allergies 02/23/18 No Physical Exam Physical Exam Constitutional: Well developed, obese, well nourished, no acute distress, non- toxic appearance. [] HENT: Normocephalic, atraumatic, bilateral external ears normal, oropharynx moist, no oral exudates, nose normal. [] Eyes: PERRLA, EOMI, conjunctiva normal, no discharge. [] Neck: Normal range of motion, no tenderness, supple, no stridor. [] Cardiovascular:Heart rate regular rhythm, no murmur [] Lungs & Thorax: Bilateral breath sounds clear to auscultation [] Abdomen: Bowel sounds normal, soft, no tenderness, no masses, no pulsatile masses. [] Skin: Warm, dry, no erythema, no rash. [] Back: No tenderness, no CVA tenderness. [] Extremities: No tenderness, no cyanosis, no clubbing, ROM intact, no edema. [] Neurologic: Alert and oriented X 3, normal motor function, normal sensory function, no focal deficits noted. [] Psychologic: Affect normal, judgement normal, mood normal. : Shaved pubic hair, normal axis, mildly edematous inner and outer labia, thick white discharge, slightly erythematous vaginal canal, no bleeding. Tender with palpation of cervix.[] EKG EKG [] Radiology/Procedures Radiology/Procedures [] Course & Med Decision Making Course & Med Decision Making Pertinent Labs and Imaging studies reviewed. (See chart for details) The patient's wet prep was positive for yeast and bacterial vaginosis. I will treat her with 2 g of Flagyl and 200 mg of Diflucan in the ED. Her GC chlamydia are pending. The patient would like to go ahead and be treated for gonorrhea and chlamydia. I'll give her 50 mg of Rocephin IM and 1 g of azithromycin by mouth. She is stable for discharge at this time. [] Dragon Disclaimer Dragon Disclaimer This electronic medical record was generated, in whole or in part, using a voice recognition dictation system. Departure Departure: Impression: Primary Impression: BV (bacterial vaginosis) Additional Impressions: Vaginal yeast infection Concern about STD in female without diagnosis Disposition: 01 HOME, SELF-CARE Condition: STABLE Referrals: PCPALEX (PCP) Patient Instructions: Bacterial Vaginosis, [id number] Problem Qualifiers DAYRON JEAN DO Jun 14, 2019 07:35
[2019-06-14] MEDS ORDERED: metroNIDAZOLE 500 MG TABLET PO ONE (08:15)
[2019-06-14] MEDS ORDERED: FLUCONAZOLE 100 MG TABLET. PO ONE (08:15)
[2019-06-14 08:27] LABS: BACTERIA,URINE MOD /HPF (0-FEW); BILIRUBIN,URINE NEG (NEG); CLARITY,URINE CLOUDY; COLOR,URINE YELLOW; GLUCOSE,URINE NEG (NEG); NITRITE,URINE NEG (NEG); SQUAMOUS EPITHELIAL CELL,UR MANY /LPF; UROBILINOGEN,URINE 0.2 mg/dL (0.2 mg/dL)
[2019-06-14 08:28] LABS: YEAST,URINE PRESENT /HPF
[2019-06-14] MEDS ORDERED: LIDOCAINE 2% TOPICAL JELLY 5GM TUBE. TP ONE (08:30)
[2019-06-14] MEDS ORDERED: cefTRIAXone IM 250 MG VIAL IM ONE (08:45)
[2019-06-14] MEDS ORDERED: AZITHROMYCIN 250 MG TABLET. PO ONE (08:45)
[2019-06-15 16:07] LABS: CHLAMYDIA PROBE Negative (Negative)
== END 2019-06-14 08:55 | disposition home or self-care (01) ==
LOC: ER 07:16
DX: N76.0 Acute vaginitis (principal); B96.89 Other specified bacterial agents as the cause of diseases classified elsewhere; B37.3 Candidiasis of vulva and vagina; Z20.2 Contact with and (suspected) exposure to infections with a predominantly sexual mode of transmission; Z87.440 Personal history of urinary (tract) infections
CPT/HCPCS: 36415; 81001; 81025; 87086; 87491; 87591; 96372; 99284; J0456; J0696; Q0111

== ENCOUNTER 2019-11-18 01:59 | Emergency (ER) | payer MEDICAID ==
[~2019-11-18] VITALS: Ht 170.2 cm; Wt 90.5 kg
[2019-11-18 01:59] VITALS: BP 125/78
--- NOTE | 2019-11-18 02:45 | PHYS DOC ---
Past History Past Medical History: STD Additional Past Medical Histor: HERPES Past Surgical History: No Surgical History Smoking: Non-smoker Alcohol Use: Occasionally Drug Use: None Adult General Chief Complaint Chief Complaint: SHORTNESS OF BREATH HPI HPI 24-year-old female presents with 2 day history of reported shortness of air. Patient denies cough. Denies fever or chills. Reports some chest discomfort. Denies leg swelling or calf tenderness. Denies history of PE/DVT. Denies use of estrogen control. Denies . Review of Systems Review of Systems Constitutional: Denies fever or chills Eyes: Denies redness or eye pain HENT: Denies nasal congestion or sore throat Respiratory: Denies cough; reports shortness of breath Cardiovascular: Reports chest pain; denies palpitations GI: Denies abdominal pain, nausea, or vomiting : Denies dysuria or hematuria Musculoskeletal: Denies back pain or joint pain Integument: Denies rash or skin lesions Neurologic: Denies headache, focal weakness or sensory changes Complete systems were reviewed and found to be within normal limits, except as documented in this note. Allergies Allergies Allergies Coded Allergies Type Severity Reaction Last Updated Verified No Known Drug Allergies 02/23/18 No Physical Exam Physical Exam Constitutional: Well developed, well nourished, no acute distress, non-toxic appearance HENT: Normocephalic, atraumatic, oropharynx moist Eyes: Conjunctiva normal, no discharge Neck: Normal range of motion, no tenderness, supple Cardiovascular: Heart rate normal, regular rhythm Lungs & Thorax: No respiratory distress, equal chest rise and fall Skin: Warm, dry, no erythema, no rash Extremities: No tenderness, ROM intact, no edema Neurologic: Alert and oriented X 3, no focal deficits noted Psychologic: Affect anxious, judgment normal EKG EKG [] Radiology/Procedures Radiology/Procedures PROCEDURE: CHEST PA & LATERAL INDICATION: Shortness of air COMPARISON: February 2018 FINDINGS: 2 view of chest obtained. Cardiac silhouette mildly prominent but similar to prior. Relative haziness at lung bases on the frontal view without correlate on lateral view. IMPRESSION: * Haziness at lung bases on frontal view without correlate on lateral view. This is likely secondary to overlying soft tissue structures. A definite region of focal airspace consolidation is not seen. Electronically signed by: Adolph Farrell MD (11/18/2019 2:48 AM) [id number] Course & Med Decision Making Course & Med Decision Making Pertinent Imaging studies reviewed. (See chart for details) Nontoxic patient presents with report of shortness of air and atypical chest pain. Afebrile. Sats stable. Chest x-ray without acute process. Patient educated she is not a candidate at this time for COVID-19. Patient educated to self-quarantine. PERC negative. Patient stable for discharge with outpatient follow-up with PCP. Discussed findings and plan with patient, who acknowledges understanding and agreement. Rubens Disclaimer Rubens Disclaimer This electronic medical record was generated, in whole or in part, using a voice recognition dictation system. Departure Departure: Impression: Primary Impression: Atypical chest pain Additional Impression: Shortness of breath Disposition: HOME, SELF-CARE Condition: STABLE Referrals: PCP,NO (PCP) Patient Instructions: Chest Pain (Nonspecific), [id number], Shortness of Breath, [id number] Scripts Albuterol Sulfate (PROAIR HFA INHALER) 8.5 Gm Hfa.aer.ad 2 PUFF IH PRN Q4-6HRS PRN for SHORTNESS OF BREATH, #1 INHALER 0 Refills Prov: YANETH SILVA DO 11/18/19 PERC Rule for PE PERC Rule for PE Response (Comments) Value Age > 50: No 0 HR > 100: No 0 Sa02 on room air <95%: No 0 Unilateral leg swelling: No 0 Hemoptysis: No 0 Recent surgery or trauma: No 0 Prior PE or DVT: No 0 Hormone use: No 0 Total 0 Problem Qualifiers YANETH SILVA DO Nov 18, 2019 02:44
--- NOTE | 2019-11-18 02:52 | RAD ---
INDICATION: Shortness of air COMPARISON: February 2018 FINDINGS: 2 view of chest obtained. Cardiac silhouette mildly prominent but similar to prior. Relative haziness at lung bases on the frontal view without correlate on lateral view. IMPRESSION: * Haziness at lung bases on frontal view without correlate on lateral view. This is likely secondary to overlying soft tissue structures. A definite region of focal airspace consolidation is not seen. Electronically signed by: Adolph Farrell MD (11/18/2019 2:48 AM) [id number]
[2019-11-18] MEDS ORDERED: ALBU2.5V8 IH (02:56)
== END 2019-11-18 03:22 | disposition home or self-care (01) ==
LOC: ER 01:59
DX: R07.89 Other chest pain (principal); R06.02 Shortness of breath
CPT/HCPCS: 71046; 99283

== ENCOUNTER → 2020-05-02 | Outpatient (CLI) | payer MEDICAID ==
[2019-11-18 03:10] VITALS: BP 122/72
[~2020-05-02] MED LIST changes: +ALBU2.5V8 IH
--- NOTE | 2020-05-02 16:24 | RAD ---
EXAM: Cervical spine, 3 views. HISTORY: Pain. COMPARISON: None. FINDINGS: 3 views of the cervical spine are obtained. There is no listhesis. The vertebral bodies are normal in height and the disc spaces are preserved. IMPRESSION: No acute osseous finding. Electronically signed by: Irish Chand MD (05/02/2020 4:21 PM) [id number]
== END | disposition home or self-care (01) ==
LOC: PMG 11:25
PROVIDERS: ATTEND Family Medicine
DX: M54.2 Cervicalgia (principal)
CPT/HCPCS: 72040

== ENCOUNTER 2020-09-27 22:19 | Emergency (ER) | payer OTHER, MEDICAID ==
[~2020-09-27] VITALS: Ht 170.2 cm; Wt 99.3 kg
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
[2020-09-27] MEDS ORDERED: CYCL-331 PO (23:12)
[2020-09-27] MEDS ORDERED: HYDR-1179 PO (23:12)
--- NOTE | 2020-09-27 23:43 | RAD ---
Acute Abdominal Series: Technique: PA view of the chest and supine and upright views of the abdomen were obtained. History: Pain. Comparison: None. Findings: The lungs and pleural margins are clear. There is air and stool scattered the colon. The paucity smal l bowel gas. There are linear opacities in the lung bases left more than right. There is no free air. Impression: 1. Constipation. 2. Basal infiltrates could be discoid atelectasis or early pneumonia. End impression Three view lumbosacral spine History: Pain AP, coned-down lateral and lateral views of the lumbosacral spine were obtained. The vertebral bodies are aligned. There is no loss of vertebral body stature. Intervertebral disc hei ghts are preserved. Impression: No acute findings. End Impression Electronically signed by: Carter Patel III, MD (09/27/2020 11:40 PM) [facility]
[2020-09-27 23:57] LABS: BARBITURATES NEG (NEG); BENZODIAZEPINES NEG (NEG); CANNABINOIDS NEG (NEG); COCAINE NEG (NEG); METHADONE NEG (NEG); OPIATES NEG (NEG); PHENCYCLIDINE NEG (NEG)
[2020-09-27 23:58] LABS: AMPHETAMINE/METHAMPHETAMINE NEG (NEG)
[2020-09-28 00:07] LABS: BILIRUBIN,URINE NEG (NEG); CLARITY,URINE CLEAR; COLOR,URINE YELLOW; GLUCOSE,URINE NEG (NEG)
[2020-09-28 00:08] LABS: BACTERIA,URINE 0 /HPF (0-FEW); NITRITE,URINE NEG (NEG); RBC,URINE OCC /HPF (0-2); SQUAMOUS EPITHELIAL CELL,UR OCC /LPF; WBC,URINE 0 /HPF (0-4)
[2020-09-28 00:35] VITALS: BP 118/66
== END 2020-09-28 00:35 | disposition home or self-care (01) ==
LOC: ER 22:19
DX: S39.012A Strain of muscle, fascia and tendon of lower back, initial encounter (principal); S29.012A Strain of muscle and tendon of back wall of thorax, initial encounter; K59.00 Constipation, unspecified; V89.2XXA Person injured in unspecified motor-vehicle accident, traffic, initial encounter; Y93.I9 Activity, other involving external motion; Y92.488 Other paved roadways as the place of occurrence of the external cause; Y99.8 Other external cause status
CPT/HCPCS: 36415; 72100; 74022; 80307; 81001; 81025; 99284

== ENCOUNTER 2020-11-21 21:59 | Emergency (ER) | payer OTHER, MEDICAID ==
[~2020-11-21] VITALS: Ht 170.2 cm; Wt 99.3 kg
[~2020-11-21 21:59] MED LIST changes: +CYCL-331 PO; +HYDR-1179 PO
[2020-11-21 22:00] VITALS: BP 122/71
[2020-11-21] MEDS ORDERED: IBUPROFEN 600 MG TABLET. PO ONE (22:45)
[2020-11-21] MEDS ORDERED: ACETAMINOPHEN 500 MG TABLET PO ONE (22:45)
[2020-11-21] MEDS ORDERED: DIAZ5TAB4 PO (23:48)
[2020-11-21] MEDS ORDERED: HYDR-2155 PO (23:48)
--- NOTE | 2020-11-21 23:48 | PHYS DOC ---
Past History Past Medical History: No Pertinent History, STD Additional Past Medical Histor: HERPES Past Surgical History: No Surgical History Smoking: Non-smoker Alcohol Use: Occasionally Drug Use: None Adult General Chief Complaint Chief Complaint: BACK PAIN OR INJURY HPI HPI Patient is a 25-year-old female who presents with low back pain for a day. 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 States that 6 out of 10, dull and achy in nature across the low back. Denies any numbness/weakness/tingling. Denies any trouble ambulating. Denies any urinary incontinence or retention. Denies any stooling issues. Denies any radiation of pain. Review of Systems Review of Systems Review of systems otherwise unremarkable except noted in HPI Current Medications Current Medications Current Medications Medications (Trade) Dose Ordered Sig/Krystin Start Time Stop Time Status Last Admin Dose Admin Acetaminophen (Tylenol) 1,000 mg 1X ONCE 11/21/20 22:45 11/21/20 22:48 DC 11/21/20 23:13 1,000 MG Ibuprofen (Motrin) 600 mg 1X ONCE 11/21/20 22:45 11/21/20 22:48 DC 11/21/20 23:13 600 MG Allergies Allergies Allergies Coded Allergies Type Severity Reaction Last Updated Verified No Known Drug Allergies 02/23/18 No Physical Exam Physical Exam Constitutional: Well developed, well nourished, no acute distress, non-toxic appearance. [] HENT: Normocephalic, atraumatic, bilateral external ears normal, oropharynx moist, no oral exudates, nose normal. [] Neck: Normal range of motion, no tenderness, Cardiovascular:Heart rate regular rhythm, no murmur [] Lungs & Thorax: Bilateral breath sounds clear to auscultation [] Abdomen: soft, no tenderness, no masses, no pulsatile masses. [] Skin: Warm, dry, no erythema, no rash. [] Back: No tenderness, Extremities: No tenderness, no cyanosis, no clubbing, ROM intact, no edema. [] Neurologic: Alert and oriented X 3, normal motor function, normal sensory function, no focal deficits noted. [] Psychologic: Affect normal, judgement normal, mood normal. [] Current Patient Data Vital Signs Vital Signs Date Time Temp Pulse Resp B/P (MAP) Pulse Ox O2 Delivery O2 Flow Rate FiO2 11/21/20 22:00 98.6 94 20 122/71 (88) 98 Room Air Lab Results Laboratory Tests Test 11/21/20 23:25 POC Urine HCG, Qualitative hcg negative (Negative) EKG EKG [] Radiology/Procedures Radiology/Procedures [] Heart Score C/O Chest Pain: No Risk Factors: Risk Factors: DM, Current or recent (<one month) smoker, HTN, HLP, family history of CAD, obesity. Risk Scores: Risk Factors: DM, Current or recent (<one month) smoker, HTN, HLP, family history of CAD, obesity. Course & Med Decision Making Course & Med Decision Making Patient is a 25-year-old female who presents with low back pain Vital signs not concerning. Physical exam noted above. Patient given Tylenol, ibuprofen and ice. No focal neurologic deficits noted. Discussed pain management at home as well as activity levels. Advised to follow-up with primary care physician as soon as she can to discuss ED visit and set up a follow-up. Gave strict return precautions to the ED. Patient grateful, verbalized understanding and agreed with plan of discharge. [] Dragon Disclaimer Dragon Disclaimer This electronic medical record was generated, in whole or in part, using a voice recognition dictation system. Departure Departure: Impression: Primary Impression: Back pain Disposition: 01 DC HOME SELF CARE/HOMELESS Condition: GOOD Referrals: PCP,ALEX (PCP) MARK ELIZABETH MD Patient Instructions: Back Pain, Adult Additional Instructions: Please read all the attached information. You can use Tylenol, ibuprofen and Benadryl as well as ice and/or heat as needed at home for pain control. Please do not participate in any strenuous exercise but continue to walk normally. Please follow-up with your primary care physician as soon as you can to discuss ED visit and need for further evaluation and treatment. Please call them first thing in the morning to set this up. Please come back to the ED with new or concerning symptoms. Scripts Hydrocodone Bit/Acetaminophen (HYDROCODONE-APAP 5-325 ) 1 Each Tablet 1 TAB PO TID PRN for PAIN for 3 Days, #9 TAB 0 Refills Prov: ANASTASIA MELENDEZ MD 11/21/20 Diazepam (DIAZEPAM) 5 Mg Tablet 5 MG PO BID for spasm for 7 Days, #14 TAB Prov: ANASTASIA MELENDEZ MD 11/21/20 ANASTASIA MELENDEZ MD Nov 21, 2020 23:48
== END 2020-11-21 23:56 | disposition home or self-care (01) ==
LOC: ER 21:59
DX: M54.5 Low back pain (principal); X50.0XXA Overexertion from strenuous movement or load, initial encounter; Y93.89 Activity, other specified; Y92.128 Other place in nursing home as the place of occurrence of the external cause; Y99.0 Civilian activity done for income or pay
CPT/HCPCS: 81025; 99283

== ENCOUNTER 2021-02-10 05:07 | Emergency (ER) | payer MEDICAID, OTHER ==
[~2021-02-10] VITALS: Ht 170.2 cm; Wt 99.3 kg
[~2021-02-10 05:07] MED LIST changes: +DIAZ5TAB4 PO; +HYDR-2155 PO
--- NOTE | 2021-02-10 05:20 | PHYS DOC ---
Past History Past Medical History: No Pertinent History, STD Additional Past Medical Histor: HERPES Past Surgical History: No Surgical History Smoking: Non-smoker Alcohol Use: Occasionally Drug Use: None Adult General Chief Complaint Chief Complaint: ABDOMINAL PAIN HPI HPI This is a pleasant 25-year-old female previously healthy presented to the emergency department complaint of bilateral mid abdominal pain of 2 to 3 days duration. She states that her pain is squeezing and cramping in nature and intermittent. She graded pain 5 out of 10 in the ER. Pain was severe at home. She states that nothing makes pain better or worse. She has taken Tylenol yesterday with a significant relief of abdominal pain. She denies any associated nausea vomiting with abdominal pain. She denies any fever, chills, bowel or bladder problem. She does report that occasionally she has hard stool. She endorses not drink plenty of fluids. Denies any frequency, dysuria, or lower pelvic pain. She has irregular menstrual period. She endorses not particular taking fiber in her diet. Denies any sick contact or recent travel. Denies any recent antibiotic use or hospitalization. Does not see any primary care provider. [facility] pharmacy. Review of Systems Review of Systems All other systems were reviewed and found to be within normal limits, except as documented in this note. Allergies Allergies Allergies Coded Allergies Type Severity Reaction Last Updated Verified No Known Drug Allergies 02/23/18 No Physical Exam Physical Exam Constitutional: Well developed, well nourished, no acute distress, non-toxic appearance. [] HENT: Normocephalic, atraumatic, bilateral external ears normal, oropharynx moist, no oral exudates, nose normal. [] Eyes: PERRLA, EOMI, conjunctiva normal, no discharge. [] Neck: Normal range of motion, no tenderness, supple, no stridor. [] Cardiovascular:Heart rate regular rhythm, no murmur [] Lungs & Thorax: Bilateral breath sounds clear to auscultation [] Abdomen: Bowel sounds normal, soft, no tenderness, no masses, no pulsatile masses. [] Skin: Warm, dry, no erythema, no rash. [] Back: Diffuse nonspecific tenderness bilateral mid abdomen and epigastric area. Extremities: No tenderness, no cyanosis, no clubbing, ROM intact, no edema. [] Neurologic: Alert and oriented X 3, normal motor function, normal sensory function, no focal deficits noted. [] Psychologic: Affect normal, judgement normal, mood normal. [] EKG EKG [] Radiology/Procedures Radiology/Procedures [] Heart Score C/O Chest Pain: N/A Risk Factors: Risk Factors: DM, Current or recent (<one month) smoker, HTN, HLP, family history of CAD, obesity. Risk Scores: Risk Factors: DM, Current or recent (<one month) smoker, HTN, HLP, family history of CAD, obesity. Course & Med Decision Making Course & Med Decision Making Patient was examined and evaluated immediately upon arrival to the ER. Patient has history of constipation,. She has poor fluid intake and poor dietary habit including fiber in her diet. She was diagnosed with constipation. Blood work reviewed and unremarkable. X-ray revealing for copious fecal loading. Patient was advised to increase ambulation, increase fiber in her diet, increase hydration as well. She was given prescription for MiraLAX and Colace to regulate her bowel. Laboratory Tests Test 02/10/21 05:15 02/10/21 05:42 02/10/21 06:00 Urine Collection Type Unknown Urine Color Yellow Urine Clarity Clear Urine pH 6.0 Urine Specific [place] 1.025 Urine Protein Neg Urine Glucose (UA) Neg mg/dL Urine Ketones (Stick) Neg mg/dL Urine Blood Neg Urine Nitrite Neg Urine Bilirubin Neg Urine Urobilinogen Dipstick 0.2 mg/dL Urine Leukocyte Esterase Neg Urine RBC 0 /HPF Urine WBC Occ /HPF Urine Squamous Epithelial Cells Few /LPF Urine Bacteria 0 /HPF Urine Opiates Screen Neg Urine Methadone Screen Neg Urine Barbiturates Neg Urine Phencyclidine Screen Neg Urine Amphetamine/Methamphetamine Neg Urine Benzodiazepines Screen Neg Urine Cocaine Screen Neg Urine Cannabinoids Screen Neg Urine Ethyl Alcohol Neg Bedside Urine HCG, Qualitative hcg negative White Blood Count 11.2 x10^3/uL Red Blood Count 4.67 x10^6/uL Hemoglobin 12.3 g/dL Hematocrit 38.0 % Mean Corpuscular Volume 82 fL Mean Corpuscular Hemoglobin 26 pg Mean Corpuscular Hemoglobin Concent 32 g/dL Red Cell Distribution Width 15.9 % Platelet Count 320 x10^3/uL Neutrophils (%) (Auto) 58 % Lymphocytes (%) (Auto) 34 % Monocytes (%) (Auto) 7 % Eosinophils (%) (Auto) 1 % Basophils (%) (Auto) 0 % Neutrophils # (Auto) 6.5 x10^3uL Lymphocytes # (Auto) 3.8 x10^3/uL Monocytes # (Auto) 0.8 x10^3/uL Eosinophils # (Auto) 0.1 x10^3/uL Basophils # (Auto) 0.0 x10^3/uL Sodium Level 142 mmol/L Potassium Level 4.1 mmol/L Chloride Level 108 mmol/L Carbon Dioxide Level 27 mmol/L Anion Gap 7 Blood Urea Nitrogen 11 mg/dL Creatinine 0.9 mg/dL Estimated GFR (Cockcroft-Gault) 93.9 BUN/Creatinine Ratio 12 Glucose Level 95 mg/dL Lactic Acid Level 0.4 mmol/L Calcium Level 8.9 mg/dL Total Bilirubin 0.2 mg/dL Aspartate Amino Transf (AST/SGOT) 16 U/L Alanine Aminotransferase (ALT/SGPT) 21 U/L Alkaline Phosphatase 111 U/L Total Protein 6.8 g/dL Albumin 3.1 g/dL Albumin/Globulin Ratio 0.8 Lipase 81 U/L Serum Test, Qualitative Negative Current Medications Medications (Trade) Dose Ordered Sig/Krystin Route PRN Reason Start Time Stop Time Status Last Admin Dose Admin Morphine Sulfate (Morphine 4mg Syringe) 4 mg PRN Q15MIN PRN IV/SQ PAIN GREATER THAN 3/10 02/10/21 05:45 02/10/21 05:48 DC Sodium Chloride 1,000 ml @ 1,000 mls/hr Q1H IV 02/10/21 05:45 02/10/21 05:48 DC Sodium Chloride (Normal Saline Flush) 10 ml QSHIFT PRN IV AFTER MEDS AND BLOOD DRAWS 02/10/21 05:45 02/10/21 05:48 DC Ketorolac Tromethamine (Toradol 30mg Vial) 30 mg 1X ONCE IM 02/10/21 06:00 02/10/21 06:01 DC Ketorolac Tromethamine (Toradol 30mg Vial) 30 mg 1X ONCE IVP 02/10/21 06:00 02/10/21 06:01 UNV Ketorolac Tromethamine (Toradol 30mg Vial) 30 mg 1X ONCE IVP 02/10/21 06:15 02/10/21 06:16 DC 02/10/21 06:07 REASON: abd pain PROCEDURE: ACUTE ABDOMEN SERIES EXAMINATION: XR ABDOMEN COMP ACUTE CLINICAL HISTORY: Abdominal pain EXAM DATE/TIME: 02/10/2021 5:47 AM COMPARISON: None FINDINGS: Lines, Tubes, and Devices: None. Cardiomediastinal Silhouette: Within normal limits. Lungs and Pleura: Minimal left basilar subsegmental atelectasis. No evidence of pleural effusion. Pulmonary vasculature unremarkable. Bones and Soft Tissues: No acute osseous abnormality. Abdomen: Nonobstructive bowel gas pattern. No evidence of pneumoperitoneum or significant abdominal calcifications. IMPRESSION: Nonobstructive bowel gas pattern. Minimal left basilar subsegmental atelectasis. Electronically signed by: Steven Snow DO (02/10/2021 6:43 AM) [facility] Art Disclaimer Rubens Disclaimer This electronic medical record was generated, in whole or in part, using a voice recognition dictation system. Departure Departure: Impression: Primary Impression: Constipation Disposition: HOME / SELF CARE / HOMELESS Referrals: PCP,ALEX (PCP) Patient Instructions: Constipation, Adult, [id number] Additional Instructions: Please establish primary care provider. You have been diagnosed with constipation. Please regulate your bowel with increasing fiber in your diet and by drinking plenty of fluids. Continue to stay active and increase ambulation. Please take the medication as prescribed to regulate her bowel. You may discontinue the MiraLAX if your bowel movement more than 3 in 1 day. Scripts Docusate Sodium (COLACE) 100 Mg Capsule 1 CAP PO BID for constipation for 30 Days, #60 CAP 0 Refills Prov: ELIZABETH JAMES MD 02/10/21 Polyethylene Glycol 3350 (MIRALAX) 17 Gm Powd.pack 1 PACKET PO DAILY for constipation, #30 PACKET 0 Refills dissolve in water Prov: ELIZABETH JAMES MD 02/10/21 ELIZABETH JAMES MD Feb 10, 2021 05:20
[2021-02-10] MEDS ORDERED: MORPHINE SULFATE 4 MG/ML DISP.SYRIN. IV/SQ PRN (05:45)
[2021-02-10] MEDS ORDERED: 0.9 % SODIUM CHLORIDE 10 ML DISP.SYRIN. IV PRN (05:45)
[2021-02-10] MEDS ORDERED: IV NORMAL SALINE 1,000ML 1,000 ML IV SCH (05:45)
[2021-02-10] MEDS ORDERED: KETOROLAC 30 MG/ML VIAL. IM ONE (06:00)
[2021-02-10] MEDS ORDERED: KETOROLAC 30 MG/ML VIAL. IVP ONE ×2 (06:00→06:15)
[2021-02-10 06:12] LABS: BASO % 0 % (0-3); EOS # 0.1 x10^3/uL (0.0-0.7); EOS % 1 % (0-3); HEMOGLOBIN 12.3 g/dL (12.0-15.5); LYMPH # 3.8 x10^3/uL (1.0-4.8); LYMPH % 34 % (24-48); MEAN CORPUSCULAR HEMOGLOBIN 26 pg (25-35); MEAN CORPUSCULAR HGB CONC 32 g/dL (31-37); MEAN CORPUSCULAR VOLUME 82 fL (79-100); MONO # 0.8 x10^3/uL (0.0-1.1); MONO % 7 % (0-9); NEUT # 6.5 x10^3uL (1.8-7.7); NEUT % 58 % (31-73); PLATELET COUNT 320 x10^3/uL (140-400); RED BLOOD COUNT 4.67 x10^6/uL (3.50-5.40); RED CELL DISTRIBUTION WIDTH 15.9 % (11.5-14.5); WHITE BLOOD COUNT 11.2 x10^3/uL (4.0-11.0)
[2021-02-10 06:17] LABS: BACTERIA,URINE 0 /HPF (0-FEW); BILIRUBIN,URINE NEG (NEG); CLARITY,URINE CLEAR; COLOR,URINE YELLOW; GLUCOSE,URINE NEG (NEG); NITRITE,URINE NEG (NEG); RBC,URINE 0 /HPF (0-2); SQUAMOUS EPITHELIAL CELL,UR FEW /LPF; UROBILINOGEN,URINE 0.2 mg/dL (0.2 mg/dL); WBC,URINE OCC /HPF (0-4)
[2021-02-10 06:18] LABS: PREG TEST PT QUAL NEGATIVE (NEG)
[2021-02-10 06:22] LABS: AMPHETAMINE/METHAMPHETAMINE NEG (NEG); BARBITURATES NEG (NEG); BENZODIAZEPINES NEG (NEG); CANNABINOIDS NEG (NEG); COCAINE NEG (NEG); METHADONE NEG (NEG); OPIATES NEG (NEG); PHENCYCLIDINE NEG (NEG)
[2021-02-10 06:25] LABS: ALBUMIN 3.1 g/dL (3.4-5.0); ALBUMIN/GLOBULIN RATIO 0.8 (1.0-1.7); CALCIUM 8.9 mg/dL (8.5-10.1); CREATININE 0.9 mg/dL (0.6-1.0); GFR 93.9; POTASSIUM 4.1 mmol/L (3.5-5.1); TOTAL BILIRUBIN 0.2 mg/dL (0.2-1.0); TOTAL PROTEIN 6.8 g/dL (6.4-8.2)
[2021-02-10 06:26] VITALS: BP 100/57
[2021-02-10] MEDS ORDERED: DOCU-109 PO (06:29)
[2021-02-10] MEDS ORDERED: POLY17PO5 PO (06:29)
--- NOTE | 2021-02-10 06:45 | RAD ---
EXAMINATION: XR ABDOMEN COMP ACUTE CLINICAL HISTORY: Abdominal pain EXAM DATE/TIME: 02/10/2021 5:47 AM COMPARISON: None FINDINGS: Lines, Tubes, and Devices: None. Cardiomediastinal Silhouette: Within normal limits. Lungs and Pleura: Minimal left basilar subsegmental atelectasis. No evidence of pleural effusion. Pul monary vasculature unremarkable. Bones and Soft Tissues: No acute osseous abnormality. Abdomen: Nonobstructive bowel gas pattern. No evidence of pneumoperitoneum or significant abdominal c alcifications. IMPRESSION: Nonobstructive bowel gas pattern. Minimal left basilar subsegmental atelectasis. Electronically signed by: Steven Snow DO (02/10/2021 6:43 AM) [facility]
== END 2021-02-10 06:49 | disposition home or self-care (01) ==
LOC: ER 05:07
DX: K59.00 Constipation, unspecified (principal)
CPT/HCPCS: 36415; 74022; 80053; 80307; 81001; 81025; 83605; 83690; 84703; 85025; 96374; 99284; J1885

== ENCOUNTER 2021-06-04 07:50 | Emergency (ER) | payer MEDICAID ==
[~2021-06-04] VITALS: Ht 170.2 cm; Wt 99.3 kg
[2021-06-04 07:50] VITALS: BP 105/59
[~2021-06-04 07:50] MED LIST changes: +DOCU-109 PO; +POLY17PO5 PO
--- NOTE | 2021-06-04 08:37 | PHYS DOC ---
Past History Past Medical History: No Pertinent History, STD Additional Past Medical Histor: HERPES Past Surgical History: No Surgical History Smoking: Non-smoker Alcohol Use: Occasionally Drug Use: None Adult General Chief Complaint Chief Complaint: PAIN ON URINATION HPI HPI Patient is a 25-year-old female presenting for dysuria. Onset was 2 days ago. Reports increased frequency of urination and stabbing type pubic pain whenever she tries to initiate a stream. She has had no vaginal discharge, fever or flank pain. She also admits that her periods are irregular and that she recently saw a specialist to start her on a medicine to increase her periods. States first day last menstrual period was last month some time but cannot remember the day, she has not had a period for over past 4 weeks Review of Systems Review of Systems Fourteen body systems of review of systems have been reviewed. See HPI for pertinent positives and negative responses, other flowers all other systems are negative, non-pertinent or non-contributory Allergies Allergies Allergies Coded Allergies Type Severity Reaction Last Updated Verified No Known Drug Allergies 02/23/18 No Physical Exam Physical Exam Constitutional: Well developed, well nourished, no acute distress, non-toxic appearance. HENT: Normocephalic, atraumatic, bilateral external ears normal, oropharynx moist, no oral exudates, nose normal. Eyes: PERRLA, EOMI, conjunctiva normal, no discharge. Neck: Normal range of motion, no tenderness, supple, no stridor. Cardiovascular: Heart rate regular, sinus rhythm, no murmurs rubs or gallops Lungs & Thorax: Bilateral breath sounds clear to auscultation Abdomen: Bowel sounds normal, soft, no tenderness, no masses, no pulsatile masses. Nonsurgical abdomen, no peritoneal signs Skin: Warm, dry, no erythema, no rash. Back: No tenderness, no CVA tenderness. Extremities: No tenderness, no cyanosis, no clubbing, ROM intact, no edema. Neurologic: Alert and oriented X 3, grossly normal motor & sensory function, no focal deficits noted. Psychologic: Affect normal, judgement normal, mood normal. Current Patient Data Vital Signs Vital Signs Date Time Temp Pulse Resp B/P (MAP) Pulse Ox O2 Delivery O2 Flow Rate FiO2 06/04/21 07:50 90 16 105/59 (74) 98 Room Air EKG EKG [] Radiology/Procedures Radiology/Procedures [] Heart Score C/O Chest Pain: No Risk Factors: Risk Factors: DM, Current or recent (<one month) smoker, HTN, HLP, family history of CAD, obesity. Risk Scores: Risk Factors: DM, Current or recent (<one month) smoker, HTN, HLP, family history of CAD, obesity. Course & Med Decision Making Course & Med Decision Making ABCs unremarkable HPI physical exam and comprehensive ER work-up nonconcerning for any emergent or surgical issues Notified patient of UTI and need for antibiotic treatment. Also notified patient she was , this was unexpected. She is now . She is aware of typical precautions such as starting vitamin, establishing with [facility] etc. I advised her to schedule with [facility] tomorrow to review new diagnosis of and to follow-up on new diagnosis of UTI. Joint decision made to administer Keflex. Strict return precautions discussed and understood by patient, all questions and concerns addressed prior to departure Dragon Disclaimer Dragon Disclaimer This electronic medical record was generated, in whole or in part, using a voice recognition dictation system. Departure Departure: Impression: Primary Impression: and not yet delivered Additional Impression: UTI (urinary tract infection) Disposition: HOME / SELF CARE / HOMELESS Condition: STABLE Referrals: PCP,NO (PCP) Patient Instructions: ABCs of Additional Instructions: You were seen for a urinary tract infection. Please continue to take the antibiotics as prescribed. You were also found to be today which is a new diagnosis for you. As such, it is imperative that you contact a local [facility] services to establish care. You should return to the ED if you develop worsening pain, fever, flank pain, or any other new or concerning symptoms. Follow up with primary care for further management if ongoing symptoms. Scripts Cephalexin (KEFLEX) 500 Mg Capsule 1 CAP PO TID for uti for 7 Days, #21 CAP Prov: SE STRINGER DO 06/04/21 Problem Qualifiers SE STRINGER DO Jun 04, 2021 08:37
[2021-06-04 08:46] LABS: BILIRUBIN,URINE NEG (NEG); CLARITY,URINE CLOUDY; COLOR,URINE YELLOW; GLUCOSE,URINE NEG (NEG)
[2021-06-04 08:47] LABS: BACTERIA,URINE FEW /HPF (0-FEW); NITRITE,URINE NEG (NEG); SQUAMOUS EPITHELIAL CELL,UR FEW /LPF; UROBILINOGEN,URINE 0.2 mg/dL (0.2 mg/dL); WBC,URINE >40 /HPF (0-4)
[2021-06-04] MEDS ORDERED: CEPH500C PO (08:51)
[2021-06-04] MEDS ORDERED: CEPHALEXIN 250 MG CAPSULE PO ONE (09:00)
== END 2021-06-04 08:56 | disposition home or self-care (01) ==
LOC: ER 07:50
DX: N39.0 Urinary tract infection, site not specified (principal)
CPT/HCPCS: 81001; 81025; 87086; 99283-25

== ENCOUNTER 2021-06-19 10:07 | Emergency (ER) | payer MEDICAID ==
[~2021-06-19] VITALS: Ht 167.6 cm; Wt 106.0 kg
[~2021-06-19 10:07] MED LIST changes: +CEPH500C PO; -CYCL-331 PO; +CYCL10TA19 PO
--- NOTE | 2021-06-19 10:41 | PHYS DOC ---
Past History Past Medical History: No Pertinent History, STD Additional Past Medical Histor: HERPES Past Surgical History: No Surgical History Smoking: Non-smoker Alcohol Use: None Drug Use: None General Adult EDM: Chief Complaint: ABDOMINAL PAIN IN HPI: HPI: 25 yo F no significant past medical history comes into the ED with her boyfriend, (patient consents to his/her/their knowledge and involvement in pts' medical care), complaints of right sharp intermittent pelvic pain for the past week. States she was seen here approximately a week ago (per EMR on 06/04) had a positive test, was treated for UTI (with Keflex). States she has been having morning sickness throughout this . Last menstrual period was sometime in March. No past surgical history. Has one uncomplicated vaginal , a 4-year-old son. Has not established care during this . Review of Systems: Review of Systems: Constitutional: Denies fever or chills Eyes: Denies change in visual acuity HENT: Denies nasal congestion or sore throat Respiratory: Denies cough or shortness of breath Cardiovascular: Denies chest pain or edema GI: Denies bloody stools or diarrhea : Denies abnormal vaginal discharge, itching or odor or vaginal bleeding Musculoskeletal: Denies back pain or joint pain Integument: Denies rash or diaphoresis Neurologic: Denies headache, focal weakness or sensory changes Endocrine: Denies polyuria or polydipsia Lymphatic: Denies swollen glands Psychiatric: Denies depression or anxiety Current Medications: Current Meds: Current Medications Medications (Trade) Dose Ordered Sig/Krystin Start Time Stop Time Status Last Admin Dose Admin Ondansetron HCl (Zofran) 4 mg 1X ONCE 06/19/21 10:45 06/19/21 10:46 UNV Sodium Chloride 1,000 ml @ 1,000 mls/hr 1X ONCE 06/19/21 10:45 06/19/21 11:44 UNV Allergies: Allergies: Allergies Coded Allergies Type Severity Reaction Last Updated Verified No Known Drug Allergies 06/19/21 No Physical Exam: PE: Constitutional: Well developed, well nourished, no acute distress, non-toxic tessa earance. HENT: Normocephalic, atraumatic, Eyes: EOMI, conjunctiva normal, no discharge. Neck: Normal range of motion, supple, Cardiovascular: S1/2 present, regular rhythm Lungs & Thorax: Speaking in full sentences, bilateral equal chest rise, no tachy pnea or increased work of breathing Abdomen: soft, no tenderness, points to right suprapubic pelvic region as location of pain-is not reproducible, nonbloody emesis in bag Skin: Warm, dry, no erythema, no rash. [] Back: No tenderness, no CVA tenderness. [] Extremities: No tenderness, no cyanosis, no lower extremity edema Neurologic: Alert and oriented X 3, normal motor function, normal sensory function, no focal deficits noted. [] Psychologic: Affect normal, judgement normal, mood normal. [] Current Patient Data: Vital Signs: Vital Signs Date Time Temp Pulse Resp B/P (MAP) Pulse Ox O2 Delivery O2 Flow Rate FiO2 06/19/21 10:16 98.2 96 18 143/73 (96) 96 Room Air EKG: EKG: [] Radiology/Procedures: Radiology/Procedures: [] Heart Score: C/O Chest Pain: No Risk Factors: Risk Factors: DM, Current or recent (<one month) smoker, HTN, HLP, family history of CAD, obesity. Risk Scores: Score 0 - 3: 2.5% MACE over next 6 weeks - Discharge Home Score 4 - 6: 20.3% MACE over next 6 weeks - Admit for Clinical Observation Score 7 - 10: 72.7% MACE over next 6 weeks - Early Invasive Strategies Course & Med Decision Making: Course & Med Decision Making Pertinent Labs and Imaging studies reviewed. (See chart for details) Concern for right pelvic suprapubic abdominal pain in setting of vomiting and . Patient states she was unable to take her prior Keflex prescription due to vomiting. Urinalysis not convincing for infection but given and suprapubic discomfort, will treat. Ultrasound concerning for small subchorionic hematoma w/IUP. Patient's vomiting controlled in the ED with medications. Is now tolerating oral intake. Abdominal pain is mild and present x 1 week. Will DC home with Zofran ODT. Will discharge home with strict ED return precautions were given for vaginal bleeding, worsening pain, intractable nausea or vomiting or fever. Encouraged urgent outpatient follow-up with PMD and MAINTENANCE MAN. Life-threatening processes were considered but are low suspicion at this time, given history, physical exam and ED workup. Pt was educated on all prescription medications and adverse effects. All patient's questions were answered and pt was stable at time of discharge. Life/limb-threatening differential includes but is not limited to, ectopic , septic , sepsis/infection (endometritis, sti/pid, cystitis, pyelonephritis, Radhika's gangrene or necrotizing fasciitis, abscess), ovarian torsion, ruptured hemorrhagic ovarian cyst, endometriosis, ureterolithiasis, thrombophlebitis, hemorrhage/DIC, organ prolapse, abdominal aortic aneurysm, mesenteric ischemia, neoplasm, bowel obstruction or surgical abdomen. I have spoken with the patient and/or caregivers. I explained the patient's condition, diagnoses and treatment plan based on the information available to me at this time. I have answered the patient and/or caregiver's questions and addressed any concerns. The patient and/or caregivers have a good understanding of patient's diagnosis, condition and treatment plan as can be expected at this point. Vital signs have been stable. Patient's condition is stable and appropriate for discharge from the emergency department. Patient will pursue further outpatient evaluation with primary care physician or other designated or consulting physician as outlined in the discharge instructions. The patient and/or caregivers are agreeable to this plan of care and follow-up instructions have been explained in detail. The patient and/or caregivers have received these instructions in written form and have expressed an understanding of the discharge instructions. The patient and/or caregivers are aware that any significant change of condition or worsening of symptoms sh ould prompt immediate return to this or the closest emergency department or call to [email or web address] Art Disclaimer: Rubens Disclaimer: This electronic medical record was generated, in whole or in part, using a voice recognition dictation system. Departure Departure: Impression: Primary Impression: Abdominal pain in Additional Impressions: Subchorionic hematoma in first trimester Vomiting during Disposition: 01 HOME / SELF CARE / HOMELESS Condition: STABLE Referrals: PCP,NO (PCP) Follow up with your pcp in 1-2 days or [facility] [place] [phone] OR [facility] [phone] Patient Instructions: Abdominal Pain During , Nausea and Vomiting, Subchorionic Hematoma Additional Instructions: FOLLOW UP WITH OBGYN: Within 1 week for reevaluation, return to ED if you should develop any worsening abdominal pain, back pain or vaginal bleeding [facility] [address], [address] [place] [address] EMERGENCY DEPARTMENT GENERAL DISCHARGE INSTRUCTIONS Thank you for coming to [facility] (ED) today and trusting us with you care. We trust that you had a positivie experience in our Emergency Department. If you wish to speak to the department management, you may call the director at [phone]. YOUR FOLLOW UP INSTRUCTIONS ARE FOLLOWS: 1. Do you have a private Doctor? If you do not have a private doctor, please ask for a resource list of physicians or clinics that may be able to assist you with follow up care. 2. The Emergency Physician has interpreted your x-rays. The X-Ray specialist will also review them. If there is a change in the findings, you will be notified in 48 hours when at all possible. 3. A lab test or culture has been done, your results will be reviewed and you will be notified if you need a change in treatment. ADDITIONAL INSTRUCTIONS AND INFORMATION: 1. Your care today has been supervised by a physician who is specially trained in emergency care. Many problems require more than one evaluation for a complete diagnosis and treatment. We recommend that you schedule your follow up appointment as recomme nded to ensure complete treatment of you illness or injury. If you are unable to obtain follow up care and continue to have a problem, or if your condition worsens, we recommend that you return to the ED. 2. We are not able to safely determine your condition over the phone nor are we able to give sound medical advice over the phone. For these safety reasons, if you call for medical advice we will ask you to come to the ED for further evaluation. 3. If you have any questions regarding these discharge instructions please call the ED at [phone]. SAFETY INFORMATION: In the interest of safety, wellness, and injury prevention; we encourage you to wear your sealbelt, if you smoke; quite smoking, and we encourage family to use a protective helmet for bicycling and other sporting events that present an increased risk for head injury. IF YOUR SYMPTOMS WORSEN OR NEW SYMPTOMS DEVELOP, OR YOU HAVE CONCERNS ABOUT YOUR CONDITION; OR IF YOUR CONDITION WORSENS WHILE YOU ARE WAITING FOR YOUR FOLLOW UP APPOINTMENT; EITHER CONTACT YOUR PRIMARY CARE DOCTOR, THE PHYSICIAN WHOSE NAME AND NUMBER YOU WERE GIVEN, OR RETURN TO THE ED IMMEDIATELY. Scripts Fosfomycin Tromethamine (MONUROL) 3 Gm Packet 3 GM PO ONCE for uti MDD 3 gm for 1 Day, #1 PKT Prov: SUMAYA JOSEPH DO 06/19/21 Ondansetron (ONDANSETRON ODT) 4 Mg Tab.rapdis 4 MG PO Q6HRS for Nausea/Vomiting, #30 TAB Prov: SUMAYA JOSEPH DO 06/19/21 SUMAYA JOSEPH DO Jun 19, 2021 10:41
[2021-06-19] MEDS ORDERED: IV NORMAL SALINE 1,000ML 1,000 ML IV ONE (10:45)
[2021-06-19] MEDS ORDERED: ONDANSETRON PF 4 MG/2 ML VIAL. IVP ONE ×2 (10:45→12:00)
[2021-06-19 11:57] LABS: BASO # 0.1 x10^3/uL (0.0-0.2); BASO % 1 % (0-3); EOS # 0.1 x10^3/uL (0.0-0.7); EOS % 1 % (0-3); HEMATOCRIT 35.5 % (36.0-47.0); HEMOGLOBIN 11.3 g/dL (12.0-15.5); LYMPH # 2.9 x10^3/uL (1.0-4.8); LYMPH % 24 % (24-48); MEAN CORPUSCULAR HEMOGLOBIN 26 pg (25-35); MEAN CORPUSCULAR HGB CONC 32 g/dL (31-37); MEAN CORPUSCULAR VOLUME 83 fL (79-100); MONO # 0.6 x10^3/uL (0.0-1.1); MONO % 5 % (0-9); NEUT # 8.4 x10^3uL (1.8-7.7); NEUT % 70 % (31-73); PLATELET COUNT 374 x10^3/uL (140-400); RED BLOOD COUNT 4.29 x10^6/uL (3.50-5.40); RED CELL DISTRIBUTION WIDTH 15.4 % (11.5-14.5)
--- NOTE | 2021-06-19 11:58 | RAD ---
US OB <14 WKS History: Reason: right pelvic pain in / Spl. Instructions: / History: Comparison: None. Technique: Grayscale and color Doppler imaging of the pelvis was performed using transabdominal techn ique. Findings: The uterus measures 9.1 x 9.0 x 8.3 cm. Single intrauterine gestational sac with regular appearance. Yolk sac is identified. pole is id entified with crown-rump length 0.96 cm. Estimated gestational age by ultrasound 7 weeks 0 days. Feta l heart rate 152 bpm. Small subchorionic hematoma measures 1.1 x 0.9 x 0.5 cm. Right ovary measures 2.9 x 2.4 x 1.7 cm. Normal Doppler flow to the right ovary. Left ovary not identified due to positioning and overlying structures. IMPRESSION: 1. Single intrauterine with gestational age 7 weeks 0 days and heart rate 152 bpm. 2. Small subchorionic hematoma. Electronically signed by: Reinaldo Beverly DO (06/19/2021 11:56 AM) [id number]
[2021-06-19 12:00] LABS: CALCIUM 8.8 mg/dL (8.5-10.1); CREATININE 0.7 mg/dL (0.6-1.0); GFR 125.5; POTASSIUM 4.3 mmol/L (3.5-5.1)
[2021-06-19] MEDS ORDERED: METOCLOPRAMIDE HCL 10 MG/2 ML VIAL. IVP ONE (12:00)
[2021-06-19 12:01] LABS: BACTERIA,URINE FEW /HPF (0-FEW); BILIRUBIN,URINE NEG (NEG); CLARITY,URINE HAZY; COLOR,URINE YELLOW; GLUCOSE,URINE NEG (NEG); NITRITE,URINE NEG (NEG); SQUAMOUS EPITHELIAL CELL,UR MANY /LPF
[2021-06-19 12:06] LABS: ALBUMIN/GLOBULIN RATIO 0.9 (1.0-1.7); TOTAL BILIRUBIN 0.2 mg/dL (0.2-1.0); TOTAL PROTEIN 6.5 g/dL (6.4-8.2)
[2021-06-19] MEDS ORDERED: diphenhydrAMINE 50 MG/ML VIAL ONE (12:06)
[2021-06-19] MEDS ORDERED: diphenhydrAMINE 50 MG/ML VIAL IVP ONE (12:15)
[2021-06-19 12:33] VITALS: BP 119/63
[2021-06-19] MEDS ORDERED: ONDA4TAB12 PO (12:49)
[2021-06-19] MEDS ORDERED: FOSF3PAC4 PO (12:49)
== END 2021-06-19 13:07 | disposition home or self-care (01) ==
LOC: ER 10:07
DX: O20.8 Other hemorrhage in early pregnancy (principal); R10.2 Pelvic and perineal pain; Z3A.01 Less than 8 weeks gestation of pregnancy
CPT/HCPCS: 36415; 76801; 80053; 81001; 81025; 84702; 85025; 96361; 96374; 96375; 96376; 99284; J1200; J2405; J2765; J7030

== ENCOUNTER 2021-07-02 01:26 | Emergency (ER) | payer MEDICAID ==
[~2021-07-02] VITALS: Ht 167.6 cm; Wt 106.0 kg
[~2021-07-02 01:26] MED LIST changes: +FOSF3PAC4 PO; +ONDA4TAB12 PO
--- NOTE | 2021-07-02 01:37 | PHYS DOC ---
Past History Past Medical History: No Pertinent History, STD Additional Past Medical Histor: HERPES Past Surgical History: No Surgical History Smoking: Non-smoker Alcohol Use: None Drug Use: None Adult General Chief Complaint Chief Complaint: VOMITING IN HPI HPI Patient is a 25-year-old female who presents with nausea and vomiting. States she is 8 weeks , and has had this issue in all of her pregnancies. States she has some Zofran at home with only provides mild relief. Denies any recent traumas, travels, illnesses, fevers no chest pain, shortness of breath, abdominal pain, dysuria, hematuria, blood in the stool or diarrhea. Denies any vaginal bleeding, discharge or pain. States she has had a recent ultrasound that was normal. States she is otherwise eating and drinking normally for her. Review of Systems Review of Systems Review of systems otherwise unremarkable except noted in HPI Allergies Allergies Allergies Coded Allergies Type Severity Reaction Last Updated Verified No Known Drug Allergies 06/19/21 No Physical Exam Physical Exam Constitutional: Well developed, well nourished, no acute distress, non-toxic appearance. [] HENT: Normocephalic, atraumatic, bilateral external ears normal, oropharynx moist, no oral exudates, nose normal. [] Eyes: conjunctiva normal, no discharge. [] Neck: Normal range of motion, no tenderness, supple, no stridor. [] Cardiovascular:Heart rate regular rhythm, no murmur [] Lungs & Thorax: Bilateral breath sounds clear to auscultation [] Abdomen: soft, no tenderness, no masses, no pulsatile masses. [] Skin: Warm, dry, no erythema, no rash. [] Back: no CVA tenderness. [] Extremities: No tenderness, no cyanosis, no clubbing, ROM intact, no edema. [] Neurologic: Alert and oriented X 3, no focal deficits noted. [] Psychologic: Affect normal, judgement normal, mood normal. [] EKG EKG [] Radiology/Procedures Radiology/Procedures [] Heart Score C/O Chest Pain: No Risk Factors: Risk Factors: DM, Current or recent (<one month) smoker, HTN, HLP, family history of CAD, obesity. Risk Scores: Risk Factors: DM, Current or recent (<one month) smoker, HTN, HLP, family history of CAD, obesity. Course & Med Decision Making Course & Med Decision Making Patient is a 25-year-old female who presents with nausea and vomiting Vital signs initially notable for tachycardia and hypertension which resolved in the ED. Physical exam noted above. Nausea medicine cocktail given. Patient able to take p.o. on reassessment. Patient states she was feeling better and was ready to be discharged home. Discussed all findings with patient and advised to follow-up with primary care physician on Saturday to update on ED visit. Gave return precautions to the ED. Patient grateful, verbalized understanding and agreed with plan of discharge. [] Dragon Disclaimer Dragon Disclaimer This electronic medical record was generated, in whole or in part, using a voice recognition dictation system. Departure Departure: Impression: Primary Impression: Nausea and vomiting during Disposition: HOME / SELF CARE / HOMELESS Condition: GOOD Referrals: AZIZA CALHOUN MD (PCP) Patient Instructions: ABCs of , Nausea and Vomiting Additional Instructions: Thank you for coming into the emergency department tonight and allowing us to take care of you. Please read the attached information carefully to go back over some of the things we discussed. Over the next couple of days please try to eat a light clear diet as we discussed foregoing anything heavy. Please take your nausea medicine as prescribed. Please try to stay well-hydrated. Please call your primary care physician or your CERTIFIED ORTHOTIST first thing Saturday morning to u pdate on your ED visit and set up a follow-up as soon as you can. Please come back with new or concerning symptoms as we discussed. ANASTASIA MELENDEZ MD Jul 02, 2021 01:37
[2021-07-02 01:45] VITALS: BP 155/75
[2021-07-02] MEDS ORDERED: METOCLOPRAMIDE HCL 10 MG/2 ML VIAL. IM ONE (01:45)
[2021-07-02] MEDS ORDERED: diphenhydrAMINE HCL 25 MG CAPSULE PO ONE (01:45)
[2021-07-02] MEDS ORDERED: ONDANSETRON ODT 4 MG TAB.RAPDIS PO ONE (01:45)
[2021-07-02] MEDS ORDERED: PROMETHAZINE 25 MG SUPP.RECT. PR ONE (01:45)
[2021-07-02 02:59] LABS: BACTERIA,URINE FEW /HPF (0-FEW); BILIRUBIN,URINE NEG (NEG); COLOR,URINE YELLOW; GLUCOSE,URINE NEG (NEG); NITRITE,URINE NEG (NEG); RBC,URINE 0 /HPF (0-2); SQUAMOUS EPITHELIAL CELL,UR MANY /LPF
[2021-07-02 03:00] LABS: CLARITY,URINE HAZY
== END 2021-07-02 03:04 | disposition home or self-care (01) ==
LOC: ER 01:26
DX: O21.9 Vomiting of pregnancy, unspecified (principal); Z3A.08 8 weeks gestation of pregnancy
CPT/HCPCS: 81001; 81025; 99284; Q0162; Q0163

== ENCOUNTER 2021-08-29 21:59 | Emergency (ER) | payer MEDICAID | END 2021-08-29 23:35 | disposition left against medical advice (07) | LOC: ER 21:59 | DX: O26.892 Other specified pregnancy related conditions, second trimester (principal); J02.9 Acute pharyngitis, unspecified; R50.9 Fever, unspecified; Z3A.17 17 weeks gestation of pregnancy ==